=== PATIENT | female | born 1955 | race African-American/Black ===

== ENCOUNTER 2016-08-01 12:23 | Inpatient (IN) | payer OTHER ==
[2016-08-01 15:09] VITALS: BMI 23.5
[2016-08-01] MEDS ORDERED: PNEUMOC 13-VAL CONJ-DIP CRM/PF 0.5 ML DISP.SYRIN IM ONE (15:29)
[2016-08-01] MEDS ORDERED: ALBUTEROL SO4 6.7 GM HFA INHALER IH PRN (15:46)
--- NOTE | 2016-08-01 15:54 | HP ---
[facility] Re[facility] Assess/Revision - Admission History Admitted to Rehab from: [facility] Date of Admission to Rehab: 08/01/16 - Vital signs Vital Signs: Vital Signs Period Temp Pulse Resp BP Sys/Matson Pulse Ox Last 24 Hr 97.9 F-97.9 F 98-98 18-18 155-155/96-96 - Findings Detox History & Physical reviewed: Yes Concur with findings: Yes Comments/Additional Findings: FOR REHAB PROTOCOL
--- NOTE | 2016-08-01 16:17 | HP ---
Psychiatrist Admission - Data Date of interview: 08/01/16 Admission source: [address] [place] [address] Identifying data: This is the second admission to [address] [place] [address] for this 61 years old AA female mother of 34 yo son,resides alone ,supported by [employer]. Medical History: HIV + dx in 1989,AIDS,BA,Hep C. Psychiatric History: patient reports sleeping difficulties Follow up by psychiatrist at [facility] in [facility](not sure the name of the facility) .Current medications :Seroquel 200 mg po hs,but patient reports she needed higher dosage now since she is insomnic and having mood instability.Patient was on Seroquel 200 mg po hs while in detox this week.No history of psychiatric hospitalizations,no suicidal attempts in the past. Physical/Sexual Abuse/Trauma History: denies Vital Signs: Vital Signs - 24 hr 08/01/16 08/01/16 12:45 15:08 Temperature 97.9 F 97.9 F Pulse Rate 98 H 98 H Respiratory 18 18 Rate Blood Pressure 155/96 155/96 Allergies/Adverse Reactions: Allergies Allergy/AdvReac Type Severity Reaction Status Date / Time No Known Drug Allergies Allergy Unknown Verified 07/28/16 16:59 mushroom Allergy Rash Verified 08/01/16 15:30 Date of last physical exam: 07/28/16 Concur with the findings of this exam: Yes - Substance Abuse/Tx History Hx Alcohol Use: Yes (reorts drinking since 10yo,6 packs of beer daily) Hx Substance Use: Yes (cocaine/crack since early ,heavy user for a few years) Substance Use Type: Alcohol, Cocaine Hx Substance Use Treatment: Yes (completed this program in Apr 2016,longest abstinence 7 years) - Admission Criteria Previous failed treatment: Yes Poor recovery environment: Yes Comorbidities: Yes Lacks judgement: Yes Mental Status Exam - Mental Status Exam Alert and Oriented to: Time, Place, Person Cognitive Function: Grossly Intact Patient Appearance: Unkempt Mood: Sad Affect: Labile Patient Behavior: Cooperative Speech Pattern: Clear Voice Loudness: Normal Thought Process: Goal Oriented Thought Disorder: Not Present Hallucinations: Denies Suicidal Ideation: Denies Homicidal Ideation: Denies Insight/Judgement: Fair Sleep: Difficulty falling asleep Appetite: Fair Muscle strength/Tone: Normal Gait/Station: Normal Psychiatric Findings - Problem List ([place] 1, 2,3) (1) Acquired immune deficiency syndrome (AIDS) Current Visit: Yes Status: Chronic (2) Alcohol dependence with uncomplicated withdrawal Current Visit: Yes Status: Chronic (3) Asthma Current Visit: Yes Status: Chronic Qualifiers: Asthma severity: mild intermittent Asthma complication type: uncomplicated Qualified Code(s): J45.20 - Mild intermittent asthma, uncomplicated (4) Cocaine dependence, uncomplicated Current Visit: Yes Status: Chronic (5) HTN (hypertension) Current Visit: Yes Status: Chronic Qualifiers: Hypertension type: essential hypertension Qualified Code(s): I10 - Essential (primary) hypertension (6) Hepatitis C Current Visit: Yes Status: Chronic Qualifiers: Viral hepatitis chronicity: chronic (7) Nicotine dependence Current Visit: Yes Status: Chronic (8) Substance induced mood disorder Current Visit: Yes Status: Chronic - Initial Treatment Plan Initial Treatment Plan: Seroquel 200 mg po hs will be adjusted to 250 mg po hs. Will monitor progress.
[2016-08-01] MEDS ORDERED: QUEtiapine FUMARATE 200 MG TABLET ONE (21:57)
[2016-08-01] MEDS ORDERED: QUEtiapine FUMARATE 50 MG TABLET ONE (21:57)
[2016-08-01] MEDS: QUETIAPINE FUMARATE 200 MG, QUETIAPINE FUMARATE 50 MG PO SCH (21:59)
[2016-08-01] MEDS: ATORVASTATIN CA 20 MG TABLET (FP) PO SCH (21:59)
[2016-08-01] MEDS: NICOTINE 21 MG/24 HOURS TOPICAL PATCH TD SCH (21:59)
[2016-08-01] MEDS ORDERED: QUEtiapine FUMARATE 200 MG TABLET PO SCH (22:00)
[2016-08-01] MEDS ORDERED: ACETAMINOPHEN 325 MG TABLET (FP) PO PRN (23:46)
[2016-08-01] MEDS ORDERED: MAG HYDROX/AL HYDROX/SIMETH 30 ML UNIT-DOSE CUP PO PRN (23:46)
[2016-08-01] MEDS ORDERED: LOPERAMIDE HCL 2 MG CAPSULE PO PRN (23:46)
[2016-08-01] MEDS ORDERED: MAGNESIUM HYDROX 2400MG/30ML ORAL SUSPENSION 30 ML CUP PO PRN (23:46)
[2016-08-01] MEDS ORDERED: MENTHOL/PHENOL 1 EACH UD MM PRN (23:46)
[2016-08-01] MEDS ORDERED: hydrOXYzine PAMOATE 50 MG CAPSULE (FP) PO PRN (23:46)
[2016-08-01] MEDS ORDERED: NICOTINE POLACRILEX 2 MG GUM BUC PRN (23:46)
[2016-08-01] MEDS ORDERED: diphenhydrAMINE HCL 50 MG CAPSULE PO PRN (23:46)
[2016-08-01] MEDS ORDERED: MAGNESIUM CITRATE 300 ML BOTTLE PO PRN (23:46)
[2016-08-01] MEDS ORDERED: guaiFENesin/D-METHORPHAN HB 10 ML UNIT-DOSE CUPS PO PRN (23:46)
[2016-08-01] MEDS ORDERED: P-EPHED 60MG/TRIPROLIDI 2.5MG TABLET PO PRN (23:46)
[2016-08-01] MEDS ORDERED: amLODIPine BESYLATE 10 MG TABLET (FP) PO SCH (23:50)
[2016-08-02] MEDS: MELOXICAM PO SCH (09:17)
[2016-08-02] MEDS: NICOTINE 21 MG/24 HOURS TOPICAL PATCH TD SCH (09:18)
[2016-08-02] MEDS: PRENATAL VITAMINS W/ FOLIC ACID TABLET (FP) PO SCH (09:18)
[2016-08-02] MEDS ORDERED: amLODIPine BESYLATE 10 MG TABLET (FP) PO SCH (10:00)
[2016-08-02] MEDS ORDERED: BENAZEPRIL HCL 20 MG PO SCH (10:00)
[2016-08-02] MEDS: CHOLECALCIFEROL (VITAMIN D3) 1,000 UNIT TABLET (FP) PO SCH (11:00)
[2016-08-02] MEDS ORDERED: PNEUMOCOCCAL 23 VACCINE 0.5 ML VIAL IM ONE (12:00)
[2016-08-02] MEDS ORDERED: BENAZEPRIL PO SCH (19:15)
[2016-08-02] MEDS ORDERED: AMLODIPINE PO SCH (19:15)
[2016-08-02] MEDS ORDERED: ENALAPRIL MALEATE 10 MG TABLET (FP) PO SCH (19:30)
[2016-08-02] MEDS ORDERED: QUEtiapine FUMARATE 50 MG TABLET ONE (20:30)
[2016-08-02] MEDS ORDERED: QUEtiapine FUMARATE 200 MG TABLET ONE (20:30)
[2016-08-02] MEDS: amLODIPine BESYLATE 10 MG TABLET (FP) PO SCH (20:43)
[2016-08-02] MEDS: LISINOPRIL 20 MG TABLET (FP) PO SCH (20:43)
[2016-08-02] MEDS: QUETIAPINE FUMARATE 200 MG, QUETIAPINE FUMARATE 50 MG PO SCH (21:50)
[2016-08-02] MEDS: ATORVASTATIN CA 20 MG TABLET (FP) PO SCH (21:50)
[2016-08-02] MEDS: THIAMINE HCL 100 MG TABLET (FP) PO SCH (21:51)
[2016-08-03] MEDS: LISINOPRIL 20 MG TABLET (FP) PO SCH (09:49)
[2016-08-03] MEDS: amLODIPine BESYLATE 10 MG TABLET (FP) PO SCH (09:49)
[2016-08-03] MEDS: PRENATAL VITAMINS W/ FOLIC ACID TABLET (FP) PO SCH (09:49)
[2016-08-03] MEDS: NICOTINE 21 MG/24 HOURS TOPICAL PATCH TD SCH (09:49)
[2016-08-03] MEDS: MELOXICAM PO SCH (09:50)
[2016-08-03] MEDS: CHOLECALCIFEROL (VITAMIN D3) 1,000 UNIT TABLET (FP) PO SCH (09:51)
[2016-08-03] MEDS ORDERED: PNEUMOC 13-VAL CONJ-DIP CRM/PF 0.5 ML DISP.SYRIN IM ONE (12:01)
[2016-08-03] MEDS ORDERED: QUEtiapine FUMARATE 50 MG TABLET ONE (19:55)
[2016-08-03] MEDS ORDERED: QUEtiapine FUMARATE 200 MG TABLET ONE (19:56)
[2016-08-03] MEDS: THIAMINE HCL 100 MG TABLET (FP) PO SCH (21:28)
[2016-08-03] MEDS: IBUPROFEN 400 MG TABLET (FP) PO PRN (21:29)
[2016-08-03] MEDS: ATORVASTATIN CA 20 MG TABLET (FP) PO SCH (21:29)
[2016-08-03] MEDS: QUETIAPINE FUMARATE 200 MG, QUETIAPINE FUMARATE 50 MG PO SCH (21:29)
[2016-08-04] MEDS: PRENATAL VITAMINS W/ FOLIC ACID TABLET (FP) PO SCH (10:40)
[2016-08-04] MEDS: NICOTINE 21 MG/24 HOURS TOPICAL PATCH TD SCH (10:40)
[2016-08-04] MEDS: amLODIPine BESYLATE 10 MG TABLET (FP) PO SCH (10:40)
[2016-08-04] MEDS: LISINOPRIL 20 MG TABLET (FP) PO SCH (10:41)
[2016-08-04] MEDS: CHOLECALCIFEROL (VITAMIN D3) 1,000 UNIT TABLET (FP) PO SCH (10:41)
[2016-08-04] MEDS: MELOXICAM PO SCH (10:42)
[2016-08-04] MEDS ORDERED: QUEtiapine FUMARATE 200 MG TABLET ONE (19:38)
[2016-08-04] MEDS ORDERED: QUEtiapine FUMARATE 50 MG TABLET ONE (19:38)
[2016-08-04] MEDS: ATORVASTATIN CA 20 MG TABLET (FP) PO SCH (22:02)
[2016-08-04] MEDS: THIAMINE HCL 100 MG TABLET (FP) PO SCH (22:03)
[2016-08-04] MEDS: QUETIAPINE FUMARATE 200 MG, QUETIAPINE FUMARATE 50 MG PO SCH (22:03)
[2016-08-05] MEDS: MELOXICAM PO SCH (10:23)
[2016-08-05] MEDS: NICOTINE 21 MG/24 HOURS TOPICAL PATCH TD SCH (10:23)
[2016-08-05] MEDS: amLODIPine BESYLATE 10 MG TABLET (FP) PO SCH (10:24)
[2016-08-05] MEDS: CHOLECALCIFEROL (VITAMIN D3) 1,000 UNIT TABLET (FP) PO SCH (10:24)
[2016-08-05] MEDS: LISINOPRIL 20 MG TABLET (FP) PO SCH (10:24)
[2016-08-05] MEDS: PRENATAL VITAMINS W/ FOLIC ACID TABLET (FP) PO SCH (10:24)
[2016-08-05] MEDS ORDERED: QUEtiapine FUMARATE 200 MG TABLET ONE (19:59)
[2016-08-05] MEDS ORDERED: QUEtiapine FUMARATE 50 MG TABLET ONE (19:59)
[2016-08-05] MEDS: QUETIAPINE FUMARATE 200 MG, QUETIAPINE FUMARATE 50 MG PO SCH (21:55)
[2016-08-05] MEDS: THIAMINE HCL 100 MG TABLET (FP) PO SCH (21:55)
[2016-08-05] MEDS: ATORVASTATIN CA 20 MG TABLET (FP) PO SCH (21:55)
[2016-08-06] MEDS: CHOLECALCIFEROL (VITAMIN D3) 1,000 UNIT TABLET (FP) PO SCH (10:58)
[2016-08-06] MEDS: MELOXICAM PO SCH (10:58)
[2016-08-06] MEDS: PRENATAL VITAMINS W/ FOLIC ACID TABLET (FP) PO SCH (10:58)
[2016-08-06] MEDS: LISINOPRIL 20 MG TABLET (FP) PO SCH (10:58)
[2016-08-06] MEDS: NICOTINE 21 MG/24 HOURS TOPICAL PATCH TD SCH (10:59)
[2016-08-06] MEDS: amLODIPine BESYLATE 10 MG TABLET (FP) PO SCH (10:59)
[2016-08-06] MEDS ORDERED: QUEtiapine FUMARATE 200 MG TABLET ONE (19:24)
[2016-08-06] MEDS ORDERED: QUEtiapine FUMARATE 50 MG TABLET ONE (19:24)
[2016-08-06] MEDS: THIAMINE HCL 100 MG TABLET (FP) PO SCH (21:47)
[2016-08-06] MEDS: ATORVASTATIN CA 20 MG TABLET (FP) PO SCH (21:48)
[2016-08-06] MEDS: QUETIAPINE FUMARATE 200 MG, QUETIAPINE FUMARATE 50 MG PO SCH (21:48)
[2016-08-07] MEDS: CHOLECALCIFEROL (VITAMIN D3) 1,000 UNIT TABLET (FP) PO SCH (09:03)
[2016-08-07] MEDS: LISINOPRIL 20 MG TABLET (FP) PO SCH (09:03)
[2016-08-07] MEDS: MELOXICAM PO SCH (09:03)
[2016-08-07] MEDS: NICOTINE 21 MG/24 HOURS TOPICAL PATCH TD SCH (09:03)
[2016-08-07] MEDS: PRENATAL VITAMINS W/ FOLIC ACID TABLET (FP) PO SCH (09:03)
[2016-08-07] MEDS: amLODIPine BESYLATE 10 MG TABLET (FP) PO SCH (09:03)
[2016-08-07] MEDS ORDERED: QUEtiapine FUMARATE 200 MG TABLET ONE (19:35)
[2016-08-07] MEDS ORDERED: QUEtiapine FUMARATE 50 MG TABLET ONE (19:35)
[2016-08-07] MEDS: THIAMINE HCL 100 MG TABLET (FP) PO SCH (21:44)
[2016-08-07] MEDS: ATORVASTATIN CA 20 MG TABLET (FP) PO SCH (21:44)
[2016-08-07] MEDS: QUETIAPINE FUMARATE 200 MG, QUETIAPINE FUMARATE 50 MG PO SCH (21:44)
[2016-08-08] MEDS: PRENATAL VITAMINS W/ FOLIC ACID TABLET (FP) PO SCH (10:14)
[2016-08-08] MEDS: MELOXICAM PO SCH (10:14)
[2016-08-08] MEDS: amLODIPine BESYLATE 10 MG TABLET (FP) PO SCH (10:14)
[2016-08-08] MEDS: LISINOPRIL 20 MG TABLET (FP) PO SCH (10:14)
[2016-08-08] MEDS: CHOLECALCIFEROL (VITAMIN D3) 1,000 UNIT TABLET (FP) PO SCH (10:14)
[2016-08-08] MEDS: NICOTINE 21 MG/24 HOURS TOPICAL PATCH TD SCH (10:15)
[2016-08-08] MEDS ORDERED: QUEtiapine FUMARATE 50 MG TABLET ONE (19:54)
[2016-08-08] MEDS ORDERED: QUEtiapine FUMARATE 200 MG TABLET ONE (19:55)
[2016-08-08] MEDS: ATORVASTATIN CA 20 MG TABLET (FP) PO SCH (21:22)
[2016-08-08] MEDS: QUETIAPINE FUMARATE 200 MG, QUETIAPINE FUMARATE 50 MG PO SCH (21:22)
[2016-08-08] MEDS: THIAMINE HCL 100 MG TABLET (FP) PO SCH (21:23)
[2016-08-09] MEDS: PRENATAL VITAMINS W/ FOLIC ACID TABLET (FP) PO SCH (10:08)
[2016-08-09] MEDS: amLODIPine BESYLATE 10 MG TABLET (FP) PO SCH (10:09)
[2016-08-09] MEDS: MELOXICAM PO SCH (10:09)
[2016-08-09] MEDS: CHOLECALCIFEROL (VITAMIN D3) 1,000 UNIT TABLET (FP) PO SCH (10:09)
[2016-08-09] MEDS: LISINOPRIL 20 MG TABLET (FP) PO SCH (10:09)
[2016-08-09] MEDS: NICOTINE 21 MG/24 HOURS TOPICAL PATCH TD SCH (10:10)
[2016-08-09] MEDS ORDERED: QUEtiapine FUMARATE 50 MG TABLET ONE (19:35)
[2016-08-09] MEDS ORDERED: QUEtiapine FUMARATE 200 MG TABLET ONE (19:36)
[2016-08-09] MEDS: QUETIAPINE FUMARATE 200 MG, QUETIAPINE FUMARATE 50 MG PO SCH (21:25)
[2016-08-09] MEDS: THIAMINE HCL 100 MG TABLET (FP) PO SCH (21:25)
[2016-08-09] MEDS: ATORVASTATIN CA 20 MG TABLET (FP) PO SCH (21:25)
[2016-08-10] MEDS: MELOXICAM PO SCH (09:14)
[2016-08-10] MEDS: amLODIPine BESYLATE 10 MG TABLET (FP) PO SCH (09:15)
[2016-08-10] MEDS: PRENATAL VITAMINS W/ FOLIC ACID TABLET (FP) PO SCH (09:15)
[2016-08-10] MEDS: CHOLECALCIFEROL (VITAMIN D3) 1,000 UNIT TABLET (FP) PO SCH (09:15)
[2016-08-10] MEDS: LISINOPRIL 20 MG TABLET (FP) PO SCH (09:15)
[2016-08-10] MEDS: NICOTINE 21 MG/24 HOURS TOPICAL PATCH TD SCH (09:16)
[2016-08-10] MEDS ORDERED: QUEtiapine FUMARATE 200 MG TABLET ONE (19:32)
[2016-08-10] MEDS ORDERED: QUEtiapine FUMARATE 50 MG TABLET ONE (19:32)
[2016-08-10] MEDS: QUETIAPINE FUMARATE 200 MG, QUETIAPINE FUMARATE 50 MG PO SCH (21:25)
[2016-08-10] MEDS: ATORVASTATIN CA 20 MG TABLET (FP) PO SCH (21:26)
[2016-08-10] MEDS: THIAMINE HCL 100 MG TABLET (FP) PO SCH (21:26)
[2016-08-11] MEDS: MELOXICAM PO SCH (10:37)
[2016-08-11] MEDS: NICOTINE 21 MG/24 HOURS TOPICAL PATCH TD SCH (10:37)
[2016-08-11] MEDS: PRENATAL VITAMINS W/ FOLIC ACID TABLET (FP) PO SCH (10:38)
[2016-08-11] MEDS: amLODIPine BESYLATE 10 MG TABLET (FP) PO SCH (10:38)
[2016-08-11] MEDS: CHOLECALCIFEROL (VITAMIN D3) 1,000 UNIT TABLET (FP) PO SCH (10:39)
[2016-08-11] MEDS: LISINOPRIL 20 MG TABLET (FP) PO SCH (10:39)
[2016-08-11] MEDS ORDERED: QUEtiapine FUMARATE 50 MG TABLET ONE (20:04)
[2016-08-11] MEDS ORDERED: QUEtiapine FUMARATE 200 MG TABLET ONE (20:04)
[2016-08-11] MEDS: QUETIAPINE FUMARATE 200 MG, QUETIAPINE FUMARATE 50 MG PO SCH (21:43)
[2016-08-11] MEDS: ATORVASTATIN CA 20 MG TABLET (FP) PO SCH (21:43)
[2016-08-11] MEDS: THIAMINE HCL 100 MG TABLET (FP) PO SCH (21:43)
[2016-08-12] MEDS: PRENATAL VITAMINS W/ FOLIC ACID TABLET (FP) PO SCH (10:47)
[2016-08-12] MEDS: MELOXICAM PO SCH (10:49)
[2016-08-12] MEDS: NICOTINE 21 MG/24 HOURS TOPICAL PATCH TD SCH (10:49)
[2016-08-12] MEDS: amLODIPine BESYLATE 10 MG TABLET (FP) PO SCH (10:50)
[2016-08-12] MEDS: LISINOPRIL 20 MG TABLET (FP) PO SCH (10:50)
[2016-08-12] MEDS: CHOLECALCIFEROL (VITAMIN D3) 1,000 UNIT TABLET (FP) PO SCH (10:50)
[2016-08-12] MEDS ORDERED: QUEtiapine FUMARATE 50 MG TABLET ONE (20:11)
[2016-08-12] MEDS ORDERED: QUEtiapine FUMARATE 200 MG TABLET ONE (20:12)
[2016-08-12] MEDS: QUETIAPINE FUMARATE 200 MG, QUETIAPINE FUMARATE 50 MG PO SCH (21:36)
[2016-08-12] MEDS: ATORVASTATIN CA 20 MG TABLET (FP) PO SCH (21:36)
[2016-08-12] MEDS: THIAMINE HCL 100 MG TABLET (FP) PO SCH (21:36)
[2016-08-13] MEDS: PRENATAL VITAMINS W/ FOLIC ACID TABLET (FP) PO SCH (09:50)
[2016-08-13] MEDS: MELOXICAM PO SCH (09:50)
[2016-08-13] MEDS: LISINOPRIL 20 MG TABLET (FP) PO SCH (09:51)
[2016-08-13] MEDS: amLODIPine BESYLATE 10 MG TABLET (FP) PO SCH (09:52)
[2016-08-13] MEDS: CHOLECALCIFEROL (VITAMIN D3) 1,000 UNIT TABLET (FP) PO SCH (09:52)
[2016-08-13] MEDS: NICOTINE 21 MG/24 HOURS TOPICAL PATCH TD SCH (09:53)
[2016-08-13] MEDS ORDERED: QUEtiapine FUMARATE 200 MG TABLET ONE (19:43)
[2016-08-13] MEDS ORDERED: QUEtiapine FUMARATE 50 MG TABLET ONE (19:43)
[2016-08-13] MEDS: ATORVASTATIN CA 20 MG TABLET (FP) PO SCH (21:20)
[2016-08-13] MEDS: THIAMINE HCL 100 MG TABLET (FP) PO SCH (21:20)
[2016-08-13] MEDS: QUETIAPINE FUMARATE 200 MG, QUETIAPINE FUMARATE 50 MG PO SCH (21:20)
[2016-08-14] MEDS: IBUPROFEN 400 MG TABLET (FP) PO PRN (08:58)
[2016-08-14] MEDS: CHOLECALCIFEROL (VITAMIN D3) 1,000 UNIT TABLET (FP) PO SCH (09:00)
[2016-08-14] MEDS: amLODIPine BESYLATE 10 MG TABLET (FP) PO SCH (09:02)
[2016-08-14] MEDS: MELOXICAM PO SCH (09:03)
[2016-08-14] MEDS: NICOTINE 21 MG/24 HOURS TOPICAL PATCH TD SCH (09:04)
[2016-08-14] MEDS: PRENATAL VITAMINS W/ FOLIC ACID TABLET (FP) PO SCH (09:05)
[2016-08-14] MEDS: LISINOPRIL 20 MG TABLET (FP) PO SCH (09:05)
[2016-08-14] MEDS: CYCLOBENZAPRINE HCL 10 MG TABLET (FP) PO SCH ×2 (13:58→21:25)
[2016-08-14] MEDS ORDERED: QUEtiapine FUMARATE 200 MG TABLET ONE (21:25)
[2016-08-14] MEDS ORDERED: QUEtiapine FUMARATE 50 MG TABLET ONE (21:25)
[2016-08-14] MEDS: QUETIAPINE FUMARATE 200 MG, QUETIAPINE FUMARATE 50 MG PO SCH (21:25)
[2016-08-14] MEDS: ATORVASTATIN CA 20 MG TABLET (FP) PO SCH (21:25)
[2016-08-14] MEDS: THIAMINE HCL 100 MG TABLET (FP) PO SCH (21:26)
[2016-08-15] MEDS: MELOXICAM PO SCH (10:04)
[2016-08-15] MEDS: CYCLOBENZAPRINE HCL 10 MG TABLET (FP) PO SCH ×2 (10:05→21:09)
[2016-08-15] MEDS: PRENATAL VITAMINS W/ FOLIC ACID TABLET (FP) PO SCH (10:05)
[2016-08-15] MEDS: NICOTINE 21 MG/24 HOURS TOPICAL PATCH TD SCH (10:05)
[2016-08-15] MEDS: amLODIPine BESYLATE 10 MG TABLET (FP) PO SCH (10:05)
[2016-08-15] MEDS: CHOLECALCIFEROL (VITAMIN D3) 1,000 UNIT TABLET (FP) PO SCH (10:05)
[2016-08-15] MEDS: LISINOPRIL 20 MG TABLET (FP) PO SCH (10:05)
--- NOTE | 2016-08-15 15:11 | PN ---
[facility] Progress Note Note: C/O redness both eyes with discharge Dx. : conjunctivitis P : Tobrex ophthal ramon & Maxitrol oin't
[2016-08-15] MEDS: TOBRAMYCIN 0.3% OPHTH SOLN 5 ML BOTTLE OU SCH ×2 (17:45→21:11)
[2016-08-15] MEDS ORDERED: QUEtiapine FUMARATE 200 MG TABLET ONE (19:25)
[2016-08-15] MEDS ORDERED: QUEtiapine FUMARATE 50 MG TABLET ONE (19:25)
[2016-08-15] MEDS: QUETIAPINE FUMARATE 200 MG, QUETIAPINE FUMARATE 50 MG PO SCH (21:09)
[2016-08-15] MEDS: ATORVASTATIN CA 20 MG TABLET (FP) PO SCH (21:09)
[2016-08-15] MEDS: THIAMINE HCL 100 MG TABLET (FP) PO SCH (21:09)
[2016-08-15] MEDS: NEO/POLYMYX B SULF/DEXAMETH OPHTHALMIC OINTMENT 3.5 GM OU SCH (21:11)
[2016-08-16] MEDS: LISINOPRIL 20 MG TABLET (FP) PO SCH (09:35)
[2016-08-16] MEDS: CYCLOBENZAPRINE HCL 10 MG TABLET (FP) PO SCH ×2 (09:35→21:01)
[2016-08-16] MEDS: CHOLECALCIFEROL (VITAMIN D3) 1,000 UNIT TABLET (FP) PO SCH (09:35)
[2016-08-16] MEDS: MELOXICAM PO SCH (09:36)
[2016-08-16] MEDS: amLODIPine BESYLATE 10 MG TABLET (FP) PO SCH (09:36)
[2016-08-16] MEDS: NICOTINE 21 MG/24 HOURS TOPICAL PATCH TD SCH (09:36)
[2016-08-16] MEDS: TOBRAMYCIN 0.3% OPHTH SOLN 5 ML BOTTLE OU SCH ×4 (09:37→21:02)
[2016-08-16] MEDS: PRENATAL VITAMINS W/ FOLIC ACID TABLET (FP) PO SCH (09:37)
[2016-08-16] MEDS: diphenhydrAMINE HCL 25 MG CAPSULE (FP) PO PRN (15:32)
[2016-08-16] MEDS ORDERED: QUEtiapine FUMARATE 50 MG TABLET ONE (20:26)
[2016-08-16] MEDS ORDERED: QUEtiapine FUMARATE 200 MG TABLET ONE (20:27)
[2016-08-16] MEDS: ATORVASTATIN CA 20 MG TABLET (FP) PO SCH (21:01)
[2016-08-16] MEDS: THIAMINE HCL 100 MG TABLET (FP) PO SCH (21:01)
[2016-08-16] MEDS: QUETIAPINE FUMARATE 200 MG, QUETIAPINE FUMARATE 50 MG PO SCH (21:01)
[2016-08-16] MEDS: NEO/POLYMYX B SULF/DEXAMETH OPHTHALMIC OINTMENT 3.5 GM OU SCH (21:02)
[2016-08-17] MEDS: PRENATAL VITAMINS W/ FOLIC ACID TABLET (FP) PO SCH (09:50)
[2016-08-17] MEDS: CHOLECALCIFEROL (VITAMIN D3) 1,000 UNIT TABLET (FP) PO SCH (09:50)
[2016-08-17] MEDS: amLODIPine BESYLATE 10 MG TABLET (FP) PO SCH (09:51)
[2016-08-17] MEDS: LISINOPRIL 20 MG TABLET (FP) PO SCH (09:51)
[2016-08-17] MEDS: CYCLOBENZAPRINE HCL 10 MG TABLET (FP) PO SCH ×2 (09:51→21:03)
[2016-08-17] MEDS: MELOXICAM PO SCH (09:51)
[2016-08-17] MEDS: NICOTINE 21 MG/24 HOURS TOPICAL PATCH TD SCH (09:52)
[2016-08-17] MEDS: TOBRAMYCIN 0.3% OPHTH SOLN 5 ML BOTTLE OU SCH ×4 (09:53→21:04)
[2016-08-17] MEDS: diphenhydrAMINE HCL 25 MG CAPSULE (FP) PO PRN (09:54)
[2016-08-17] MEDS ORDERED: QUEtiapine FUMARATE 50 MG TABLET ONE (20:04)
[2016-08-17] MEDS ORDERED: QUEtiapine FUMARATE 200 MG TABLET ONE (20:05)
[2016-08-17] MEDS: QUETIAPINE FUMARATE 200 MG, QUETIAPINE FUMARATE 50 MG PO SCH (21:03)
[2016-08-17] MEDS: ATORVASTATIN CA 20 MG TABLET (FP) PO SCH (21:03)
[2016-08-17] MEDS: THIAMINE HCL 100 MG TABLET (FP) PO SCH (21:03)
[2016-08-17] MEDS: NEO/POLYMYX B SULF/DEXAMETH OPHTHALMIC OINTMENT 3.5 GM OU SCH (21:04)
[2016-08-18] MEDS: PRENATAL VITAMINS W/ FOLIC ACID TABLET (FP) PO SCH (09:55)
[2016-08-18] MEDS: MELOXICAM PO SCH (09:55)
[2016-08-18] MEDS: LISINOPRIL 20 MG TABLET (FP) PO SCH (09:56)
[2016-08-18] MEDS: CYCLOBENZAPRINE HCL 10 MG TABLET (FP) PO SCH ×2 (09:56→21:13)
[2016-08-18] MEDS: amLODIPine BESYLATE 10 MG TABLET (FP) PO SCH (09:56)
[2016-08-18] MEDS: CHOLECALCIFEROL (VITAMIN D3) 1,000 UNIT TABLET (FP) PO SCH (09:56)
[2016-08-18] MEDS: TOBRAMYCIN 0.3% OPHTH SOLN 5 ML BOTTLE OU SCH ×4 (09:57→21:12)
[2016-08-18] MEDS: NICOTINE 21 MG/24 HOURS TOPICAL PATCH TD SCH (09:57)
[2016-08-18] MEDS ORDERED: QUEtiapine FUMARATE 50 MG TABLET ONE ×2 (19:31→21:12)
[2016-08-18] MEDS: QUETIAPINE FUMARATE 200 MG, QUETIAPINE FUMARATE 50 MG PO SCH (21:10)
[2016-08-18] MEDS: THIAMINE HCL 100 MG TABLET (FP) PO SCH (21:10)
[2016-08-18] MEDS: ATORVASTATIN CA 20 MG TABLET (FP) PO SCH (21:10)
[2016-08-18] MEDS ORDERED: QUEtiapine FUMARATE 200 MG TABLET ONE (21:12)
[2016-08-18] MEDS: NEO/POLYMYX B SULF/DEXAMETH OPHTHALMIC OINTMENT 3.5 GM OU SCH (21:13)
[2016-08-19] MEDS: IBUPROFEN 400 MG TABLET (FP) PO PRN (08:38)
[2016-08-19] MEDS: CYCLOBENZAPRINE HCL 10 MG TABLET (FP) PO SCH ×2 (10:16→21:12)
[2016-08-19] MEDS: CHOLECALCIFEROL (VITAMIN D3) 1,000 UNIT TABLET (FP) PO SCH (10:16)
[2016-08-19] MEDS: amLODIPine BESYLATE 10 MG TABLET (FP) PO SCH (10:16)
[2016-08-19] MEDS: LISINOPRIL 20 MG TABLET (FP) PO SCH (10:16)
[2016-08-19] MEDS: MELOXICAM PO SCH (10:18)
[2016-08-19] MEDS: PRENATAL VITAMINS W/ FOLIC ACID TABLET (FP) PO SCH (10:19)
[2016-08-19] MEDS: NICOTINE 21 MG/24 HOURS TOPICAL PATCH TD SCH (10:21)
[2016-08-19] MEDS: TOBRAMYCIN 0.3% OPHTH SOLN 5 ML BOTTLE OU SCH ×4 (10:23→21:13)
[2016-08-19] MEDS ORDERED: QUEtiapine FUMARATE 200 MG TABLET ONE (19:16)
[2016-08-19] MEDS ORDERED: QUEtiapine FUMARATE 50 MG TABLET ONE (19:16)
[2016-08-19] MEDS: THIAMINE HCL 100 MG TABLET (FP) PO SCH (21:11)
[2016-08-19] MEDS: QUETIAPINE FUMARATE 200 MG, QUETIAPINE FUMARATE 50 MG PO SCH (21:12)
[2016-08-19] MEDS: ATORVASTATIN CA 20 MG TABLET (FP) PO SCH (21:12)
[2016-08-19] MEDS: NEO/POLYMYX B SULF/DEXAMETH OPHTHALMIC OINTMENT 3.5 GM OU SCH (21:13)
[2016-08-20 07:43] VITALS: TEMP 97.9
[2016-08-20] MEDS: amLODIPine BESYLATE 10 MG TABLET (FP) PO SCH (09:55)
[2016-08-20] MEDS: CHOLECALCIFEROL (VITAMIN D3) 1,000 UNIT TABLET (FP) PO SCH (09:55)
[2016-08-20] MEDS: LISINOPRIL 20 MG TABLET (FP) PO SCH (09:55)
[2016-08-20] MEDS: CYCLOBENZAPRINE HCL 10 MG TABLET (FP) PO SCH ×2 (09:55→21:04)
[2016-08-20] MEDS: MELOXICAM PO SCH (09:56)
[2016-08-20] MEDS: NICOTINE 21 MG/24 HOURS TOPICAL PATCH TD SCH (09:57)
[2016-08-20] MEDS: TOBRAMYCIN 0.3% OPHTH SOLN 5 ML BOTTLE OU SCH ×2 (09:58→13:36)
[2016-08-20] MEDS: PRENATAL VITAMINS W/ FOLIC ACID TABLET (FP) PO SCH (09:58)
--- NOTE | 2016-08-20 19:13 | PN ---
Psychiatric Progress Note Vital Signs: Vital Signs Period Temp Pulse Resp BP Sys/Matson Pulse Ox Last 24 Hr 97.9 F 98-108 18-18 124-130/80-84 Date of Session: 08/20/16 Chief Complaint:: Disharge visit HPI: Patient addressed Alcohol and Cocaine dependence comorbid with Substance induced mood disorder. ROS: Significant for HIV+,AIDS,BA,HTN,Hep C. Current Medications: Active Medications Generic Name Dose Route Start Last Admin Trade Name Freq PRN Reason Stop Dose Admin Acetaminophen 650 mg 08/01/16 23:46 Tylenol - PO Q4H PRN FEVER OR PAIN Al Hydroxide/Mg Hydroxide 30 ml 08/01/16 23:46 Mylanta Oral Suspension - PO Q6H PRN DYSPEPSIA Albuterol Sulfate 0 puff 08/01/16 15:46 Ventolin Hfa Inhaler - IH Q4H PRN ASTHMA Amlodipine Besylate 10 mg 08/02/16 19:30 08/20/16 09:55 Norvasc - PO 10 mg DAILY MICHAEL Administration Atorvastatin Calcium 20 mg 08/01/16 22:00 08/19/16 21:12 Lipitor - PO 20 mg HS MICHAEL Administration Cholecalciferol 2,000 unit 08/02/16 10:00 08/20/16 09:55 Vitamin D3 - PO 2,000 unit DAILY MICHAEL Administration Cyclobenzaprine HCl 10 mg 08/14/16 13:30 08/20/16 09:55 Flexeril - PO 10 mg BID MICHAEL Administration Diphenhydramine HCl 50 mg 08/01/16 23:46 08/19/16 00:26 Benadryl - PO 50 mg HSMR1 PRN Administration FOR ITCHING Diphenhydramine HCl 25 mg 08/16/16 14:53 08/17/16 09:54 Benadryl - PO 25 mg Q4H PRN Administration FOR ITCHING Eucalyptus/Menthol/Phenol/Sorbitol 1 each 08/01/16 23:46 Cepastat Lozenge - MM Q4H PRN SORE THROAT Guaifenesin 10 ml 08/01/16 23:46 Robitussin Dm - PO Q6H PRN COUGH Hydroxyzine Pamoate 50 mg 08/01/16 23:46 Vistaril - PO Q4H PRN AGITATION Lisinopril 20 mg 08/02/16 19:30 08/20/16 09:55 Prinivil PO 20 mg DAILY MICHAEL Administration Loperamide HCl 4 mg 08/01/16 23:46 Imodium - PO Q6H PRN DIARRHEA Magnesium Hydroxide 30 ml 08/01/16 23:46 Milk Of Magnesia - PO DAILY PRN CONSTIPATION Neomycin/Polymyxin/Dexamethasone 1 applic 08/15/16 22:00 08/19/16 21:13 Maxitrol Eye Ointment - OU 08/20/16 21:59 1 applic HS MICHAEL Administration Nicotine 21 mg 08/01/16 16:00 08/20/16 09:57 Nicoderm Patch - TD 21 mg DAILY MICHAEL Administration Nicotine Polacrilex 2 mg 08/01/16 23:46 Nicorette Gum - BUC Q2H PRN NICOTINE REPLACEMENT RX Non-Formulary Medication 0 each 08/02/16 10:00 08/20/16 09:55 Abacavir/Dolutegravir/Lamivudi [Triumeq Tablet] PO 1 each DAILY MICHAEL Administration Non-Formulary Medication 0 mg 08/02/16 10:00 08/20/16 09:56 Meloxicam [Meloxicam] PO 7.5 mg DAILY MICHAEL Administration Multivit/Folic Acid/Iron 1 tab 08/02/16 10:00 08/20/16 09:58 Vitamins (Sjr) - PO 1 tab DAILY MICHAEL Administration Pseudoephedrine/Triprolidine 1 combo 08/01/16 23:46 Actifed - PO TID PRN NASAL CONGESTION Quetiapine Fumarate 200 mg/ 250 mg 08/01/16 22:00 08/19/16 21:12 Quetiapine Fumarate 50 mg PO 250 mg HS MICHAEL Administration Thiamine HCl 100 mg 08/02/16 22:00 08/19/16 21:11 Vitamin B1 - PO 100 mg HS MICHAEL Administration Current Side Effect: No Lab tests ordered: No Lab tests reviewed: Yes Provider note:: The patient will complete this program tomorrow 08/21/16.She has met her treatment goals and will continue to address her issues on outpatient basis.Patient continues to find that Seroquel 250 mg po hs helps to reduce her mood instability,insomnia.Script for 30 days supply provided. Therapy provided focusing on relapse prevention issues including coping skills, support system utilization to maintain recovery. Patient is stable for discharge tomorrow 08/21/16. Total face to face time:: 30 Mental Status Exam - Mental Status Exam Alert and Oriented to: Time, Place, Person Cognitive Function: Grossly Intact Patient Appearance: Well Groomed Mood: Euthymic Affect: Mood Congruent Patient Behavior: Cooperative Speech Pattern: Clear Voice Loudness: Normal Thought Process: Goal Oriented Thought Disorder: Not Present Hallucinations: Denies Suicidal Ideation: Denies Homicidal Ideation: Denies Insight/Judgement: Fair Sleep: Fair Appetite: Good Muscle strength/Tone: Normal Gait/Station: Normal Psychiatric Treatment Plan - Problem List (1) Acquired immune deficiency syndrome (AIDS) Current Visit: Yes (2) Alcohol dependence with uncomplicated withdrawal Current Visit: Yes (3) Asthma Current Visit: Yes Qualifiers: Asthma severity: mild intermittent Asthma complication type: uncomplicated Qualified Code(s): J45.20 - Mild intermittent asthma, uncomplicated (4) Cocaine dependence, uncomplicated Current Visit: Yes (5) HTN (hypertension) Current Visit: Yes Qualifiers: Hypertension type: essential hypertension Qualified Code(s): I10 - Essential (primary) hypertension (6) Hepatitis C Current Visit: Yes Qualifiers: Viral hepatitis chronicity: chronic (7) Nicotine dependence Current Visit: Yes (8) Substance induced mood disorder Current Visit: Yes
[2016-08-20] MEDS ORDERED: QUEtiapine FUMARATE 50 MG TABLET ONE (20:06)
[2016-08-20] MEDS ORDERED: QUEtiapine FUMARATE 200 MG TABLET ONE (20:07)
[2016-08-20] MEDS: ATORVASTATIN CA 20 MG TABLET (FP) PO SCH (21:04)
[2016-08-20] MEDS: QUETIAPINE FUMARATE 200 MG, QUETIAPINE FUMARATE 50 MG PO SCH (21:04)
[2016-08-20] MEDS: THIAMINE HCL 100 MG TABLET (FP) PO SCH (21:04)
[2016-08-21] MEDS: PRENATAL VITAMINS W/ FOLIC ACID TABLET (FP) PO SCH (09:50)
[2016-08-21] MEDS: CYCLOBENZAPRINE HCL 10 MG TABLET (FP) PO SCH (09:51)
[2016-08-21] MEDS: CHOLECALCIFEROL (VITAMIN D3) 1,000 UNIT TABLET (FP) PO SCH (09:51)
[2016-08-21] MEDS: amLODIPine BESYLATE 10 MG TABLET (FP) PO SCH (09:52)
[2016-08-21] MEDS: LISINOPRIL 20 MG TABLET (FP) PO SCH (09:52)
[2016-08-21] MEDS: MELOXICAM PO SCH (09:52)
[2016-08-21] MEDS: NICOTINE 21 MG/24 HOURS TOPICAL PATCH TD SCH (09:53)
[2016-08-21 09:58] VITALS: BP 142/90; PULSE 115
== END 2016-08-21 10:20 | disposition home or self-care (01) | DRG 772 ==
LOC: YASAS 12:23 → Y3E 12:24
PROVIDERS: ADMIT Psychiatry & Neurology Psychiatry; ATTEND Psychiatry & Neurology Psychiatry
PROC: HZ42ZZZ Group Counseling for Substance Abuse Treatment, Cognitive-Behavioral (ICD-10-PCS; principal; 2016-08-01)
DX: F10.20 Alcohol dependence, uncomplicated (principal); F14.20 Cocaine dependence, uncomplicated; F17.210 Nicotine dependence, cigarettes, uncomplicated; F19.24 Other psychoactive substance dependence with psychoactive substance-induced mood disorder; B20 Human immunodeficiency virus [HIV] disease; J45.909 Unspecified asthma, uncomplicated; I10 Essential (primary) hypertension; B18.2 Chronic viral hepatitis C; H10.9 Unspecified conjunctivitis
CPT/HCPCS: 90670

== ENCOUNTER 2016-11-20 12:08 | Inpatient (IN) | payer OTHER ==
[2016-11-20 13:32] VITALS: BMI 22.8
[2016-11-20] MEDS ORDERED: MAGNESIUM HYDROX 2400MG/30ML ORAL SUSPENSION 30 ML CUP PO PRN (17:05)
[2016-11-20] MEDS ORDERED: guaiFENesin/D-METHORPHAN HB 10 ML UNIT-DOSE CUPS PO PRN (17:05)
[2016-11-20] MEDS ORDERED: MAGNESIUM CITRATE 300 ML BOTTLE PO PRN (17:05)
[2016-11-20] MEDS ORDERED: MENTHOL/PHENOL 1 EACH UD MM PRN (17:05)
[2016-11-20] MEDS ORDERED: NICOTINE POLACRILEX 2 MG GUM BC PRN (17:05)
[2016-11-20] MEDS ORDERED: diphenhydrAMINE HCL 50 MG CAPSULE PO PRN (17:05)
[2016-11-20] MEDS ORDERED: P-EPHED 60MG/TRIPROLIDI 2.5MG TABLET PO PRN (17:05)
[2016-11-20] MEDS ORDERED: chlordiazePOXIDE HCL 25 MG CAPSULE PO PRN (17:05)
[2016-11-20] MEDS ORDERED: LOPERAMIDE HCL 2 MG CAPSULE PO PRN (17:05)
[2016-11-20] MEDS ORDERED: IBUPROFEN 400 MG TABLET (FP) PO PRN (17:05)
[2016-11-20] MEDS ORDERED: ACETAMINOPHEN 325 MG TABLET (FP) PO PRN (17:05)
[2016-11-20] MEDS ORDERED: hydrOXYzine PAMOATE 50 MG CAPSULE (FP) PO PRN (17:05)
[2016-11-20] MEDS ORDERED: MAG HYDROX/AL HYDROX/SIMETH 30 ML UNIT-DOSE CUP PO PRN (17:05)
--- NOTE | 2016-11-20 17:11 | HP ---
CIWA Score - CIWA Score Nausea/Vomitin-Mild Nausea/No Vomiting Muscle Tremors: 4-Moderate,w/Arms Extend Anxiety: 4-Mod. Anxious/Guarded Agitation: 4-Moderately Restless Paroxysmal Sweats: 1-Minimal Palms Moist Orientation: 1-Uncertain about Date Tacttile Disturbances: 0-None Auditory Disturbances: 0-None Visual Disturbances: 0-None Headache: 0-None Present CIWA-Ar Total Score: 15 Admission ROS S - HPI Chief Complaint: WITHDRAWAL SX Allergies/Adverse Reactions: Allergies Allergy/AdvReac Type Severity Reaction Status Date / Time No Known Drug Allergies Allergy Unknown Verified 11/20/16 17:03 mushroom Allergy Rash Verified 11/20/16 17:03 History of Present Illness: 61 YEARS OLD FEMALE WITH LONG HISTORY OF ALCOHOL COCAINE NICOTINE DEPENDENCE, HAS HYPERTENSION ASTHMA, HIV HEPATITIS C POSITIVE PPD, ARTHRITIS OF RIGHT LEG AMBULATE WITH CANE AND DEPRESSION IS ADMITTED TO DETOX Exam Limitations: No Limitations - Ebola screening Have you traveled outside of the country in the last 21 days: No Have you had contact with anyone from an Ebola affected area: No Have you been sick,other than usual withdrawal symptoms: No Do you have a fever: No - Review of Systems Constitutional: Weight Stable EENT: reports: Dental Problems (MULTIPLE TEETH MISSING) Respiratory: reports: No Symptoms reported Cardiac: reports: No Symptoms Reported GI: reports: Nausea, Poor Fluid Intake, Abdominal cramping : reports: No Symptoms Reported Musculoskeletal: reports: Muscle Pain (RIGHT LEG) Integumentary: reports: Dryness Neuro: reports: Tremors Endocrine: reports: No Symptoms Reported Hematology: reports: No Symptoms Reported Psychiatric: reports: Judgement Intact, Orientated x3, Depressed Other Systems: Reviewed and Negative Patient History - Patient Medical History Hx Anemia: No Hx Asthma: Yes Hx Chronic Obstructive Pulmonary Disease (COPD): No Hx Cancer: No Hx Cardiac Disorders: No Hx Congestive Heart Failure: No Hx Hypertension: Yes Hx Hypercholesterolemia: No Hx Pacemaker: No HX Cerebrovascular Accident: No Hx Seizures: No Hx Dementia: No Hx Diabetes: No Hx Gastrointestinal Disorders: No Hx Liver Disease: No Hx Genitourinary Disorders: No Hx Sexually Transmitted Disorders: Yes (Syphillis Tx with 3 Im injections) Hx Renal Disease (ESRD): No Hx Thyroid Disease: No Hx Human Immunodeficiency Virus (HIV): Yes (SINCE 1989;ON MEDS;HX OIs/AIDS.) Hx Hepatitis C: Yes Hx Depression: Yes Hx Suicide Attempt: No Hx Bipolar Disorder: No Hx Schizophrenia: No - Patient Surgical History Past Surgical History: Yes Hx Neurologic Surgery: No Hx Cataract Extraction: No Hx Cardiac Surgery: No Hx Lung Surgery: No Hx Breast Surgery: No Hx Breast Biopsy: No Hx Abdominal Surgery: Yes (2001-umbillical hernia) Hx Appendectomy: No Hx Cholecystectomy: No Hx Genitourinary Surgery: No Hx Section: Yes (1981) Hx Orthopedic Surgery: No Hx Hysterectomy: Yes (1999) Anesthesia Reaction: No - PPD History Previous Implant?: Yes Documented Results: Positive w/proof Implanted On Prior R Admission?: No Results: NEGATIVE CHEST PPD to be Administered?: No - Reproductive History Patient is a Female of Child Bearing Age (11 -55 yrs old): No Last Menstrual Period: 08/17/99 Patient : No - Smoking Cessation Smoking history: Current every day smoker Have you smoked in the past 12 months: Yes Aproximately how many cigarettes per day: 4 Cigars Per Day: 0 Hx Chewing Tobacco Use: No Initiated information on smoking cessation: Yes 'Breaking Loose' booklet given: 11/20/16 - Substance & Tx. History Hx Alcohol Use: Yes Hx Substance Use: Yes Substance Use Type: Alcohol, Cocaine Hx Substance Use Treatment: Yes - Substances Abused Alcohol Route: Oral Frequency: Daily Amount used: [id number] Age of first use: 10 Date of Last Use: 11/20/16 Crack Route: Smoking Frequency: 3-6 times per week Amount used: $50 Age of first use: 25 Date of Last Use: 11/18/16 Alcohol-beer Route: Oral Frequency: Daily Amount used: 2-6 pks. Age of first use: 10 Date of Last Use: 11/20/16 Family Disease History - Family Disease History Family Disease History: Heart Disease: Mother (HEART ATTACK ), Other: Father ( CIRRHOSIS LIVER) Admission Physical Exam S - Vital Signs Vital Signs: Vital Signs - 24 hr 11/20/16 13:29 Temperature 97.3 F L Pulse Rate 111 H Respiratory 18 Rate Blood Pressure 165/98 - Physical General Appearance: Yes: Nourished, Appropriately Dressed, Mild Distress, Alcohol on Breath, Tremorous, Irritable, Sweating, Anxious HEENTM: Yes: Hearing grossly Normal, Normal ENT Inspection, Normocephalic, Normal Voice Respiratory: Yes: Chest Non-Tender, Lungs Clear, Normal Breath Sounds, No Respiratory Distress, No Accessory Muscle Use Neck: Yes: Supple, Trachea in good position Breast: Yes: Breasts Symetrical Cardiology: Yes: Regular Rhythm, S1, S2, Tachycardia Abdominal: Yes: Non Tender, Soft Genitourinary: Yes: Within Normal Limits Back: Yes: Normal Inspection Musculoskeletal: Yes: Gait Steady (CANE), Muscle Pain (RIGHT LEG) Extremities: Yes: Normal Inspection, Non-Tender, Tremors Neurological: Yes: Fully Oriented, Alert, Normal Response, Depressed Affect Integumentary: Yes: Dry, Warm Lymphatic: Yes: Within Normal Limits - Diagnostic (1) Acquired immune deficiency syndrome (AIDS) Current Visit: Yes Status: Acute (2) Alcohol dependence with uncomplicated withdrawal Current Visit: Yes Status: Acute (3) Asthma Current Visit: Yes Status: Acute Qualifiers: Asthma severity: mild intermittent Asthma complication type: uncomplicated Qualified Code(s): J45.20 - Mild intermittent asthma, uncomplicated (4) Cocaine dependence, uncomplicated Current Visit: Yes Status: Chronic (5) HTN (hypertension) Current Visit: Yes Status: Acute Qualifiers: Hypertension type: essential hypertension Qualified Code(s): I10 - Essential (primary) hypertension (6) Hepatitis C Current Visit: Yes Status: Resolved Qualifiers: Viral hepatitis chronicity: chronic Hepatic coma status: without hepatic coma Qualified Code(s): B18.2 - Chronic viral hepatitis C (7) Nicotine dependence Current Visit: Yes Status: Acute (8) Use of cane as ambulatory aid Current Visit: Yes Status: Chronic Comment: ARTHRITIS OF THE RIGHT LEG (9) Hyperlipidemia Current Visit: Yes Status: Acute Qualifiers: Hyperlipidemia type: pure hypercholesterolemia Qualified Code(s): E78.00 - Pure hypercholesterolemia, unspecified; E78.0 - Pure hypercholesterolemia (10) Positive PPD, treated Current Visit: Yes Status: Resolved (11) Dry skin Current Visit: Yes Status: Acute (12) Depression (emotion) Current Visit: Yes Status: Suspected Qualifiers: Depression Type: dysthymia Qualified Code(s): F34.1 - Dysthymic disorder Cleared for Admission S - Detox or Rehab [facility] Level of Care: Medically Managed Detox Regimen/Protocol: Librium [facility] Breath Alcohol Content Breath Alcohol Content: 0.035 Urine Pregancy Test - Result Urine Test Results: Negative- NO Line Present Urine Drug Screen - Control Is Test Valid: Yes - Results Drug Screen Negative: No Urine Drug Screen Results: VINCENT-Cocaine
[2016-11-20] MEDS ORDERED: ALBUTEROL SO4 6.7 GM HFA INHALER IH PRN (17:34)
[2016-11-20] MEDS ORDERED: COLLOIDAL OATMEAL 1 BAR EACH TP PRN (17:41)
[2016-11-20] MEDS: amLODIPine BESYLATE 10 MG TABLET (FP) PO SCH (18:54)
[2016-11-20] MEDS: ENALAPRIL MALEATE 10 MG TABLET (FP) PO SCH (18:54)
[2016-11-20] MEDS: MINERAL OIL/PETROLAT/WATER TOPICAL CREAM 454 GM JAR TP SCH (22:19)
[2016-11-20] MEDS: ATORVASTATIN CA 20 MG TABLET (FP) PO SCH (22:19)
[2016-11-20] MEDS: chlordiazePOXIDE HCL 25 MG CAPSULE PO SCH (22:19)
[2016-11-20] MEDS: THIAMINE HCL 100 MG TABLET (FP) PO SCH (22:19)
[2016-11-20 22:24] LABS: URINE APPEARANCE CLEAR; URINE BILIRUBIN NEGATIVE (NEGATIVE); URINE COLOR RED; URINE GLUCOSE (UA) NEGATIVE (NEGATIVE); URINE KETONE NEGATIVE (NEGATIVE); URINE NITRITE NEGATIVE (NEGATIVE); URINE PROTEIN NEGATIVE (NEGATIVE); URINE UROBILINOGEN NEGATIVE E.U./dl (0.2-1.0)
[2016-11-20 22:41] LABS: URINE BLOOD 1+ (NEGATIVE); URINE LEUK ESTERASE 3+ (NEGATIVE)
[2016-11-20 23:00] LABS: URINE BACTERIA RARE /hpf (NONE SEEN); URINE MUCUS RARE; URINE RBC 10 /hpf (0-3); URINE WBC 11 /hpf (3-5); YEAST RARE
[2016-11-21] MEDS: chlordiazePOXIDE HCL 25 MG CAPSULE PO SCH ×4 (06:12→22:24)
[2016-11-21 09:56] LABS: MCH 34.1 pg (25.7-33.7); MCHC 33.7 g/dl (32.0-36.0); MEAN CELL VOLUME 101.3 fl (80-96); PLATELET COUNT 227 K/MM3 (134-434); RDW 13.5 % (11.6-15.6); WHITE BLOOD COUNT 6.1 K/mm3 (4.0-10.0)
[2016-11-21 10:20] LABS: ALBUMIN 3.2 g/dl (3.4-5.0); ANION GAP 13 (8-16); CO2 22 mmol/L (21-32); GLUCOSE,RANDOM 83 mg/dL (74-106); SGOT/AST 108 U/L (15-37); SGPT/ALT 80 U/L (12-78)
[2016-11-21] MEDS: CHOLECALCIFEROL (VITAMIN D3) 1,000 UNIT TABLET (FP) PO SCH (10:20)
[2016-11-21] MEDS: ENALAPRIL MALEATE 10 MG TABLET (FP) PO SCH (10:20)
--- NOTE | 2016-11-21 10:20 | PN ---
S CIWA - CIWA Score Nausea/Vomitin Muscle Tremors: 3 Anxiety: 3 Agitation: 3 Paroxysmal Sweats: 1-Minimal Palms Moist Orientation: 0-Oriented Tacttile Disturbances: 1-Very Mild Itch/Numbness Auditory Disturbances: 1-Very Mild Visual Disturbances: 1-Very Mild Sensitivity Headache: 2-Mild CIWA-Ar Total Score: 18 [facility] Progress Note (SOAP) Subjective: ALERT,IRRITABLE,ANXIOUS,INTERRUPTED SLEEP,TREMOR Objective: 11/21/16 10:20 Vital Signs Temperature 97.5 F L 11/21/16 09:41 Pulse Rate 97 H 11/21/16 09:41 Respiratory Rate 16 11/21/16 09:41 Blood Pressure 119/72 11/21/16 09:41 O2 Sat by Pulse Oximetry (%) 11/21/16 10:20 EKG NSR 100/MIN NO CHEST PAIN,NO SOB,NO DIZZINESS Laboratory Last Values WBC 6.1 K/mm3 (4.0-10.0) D 11/21/16 06:00 RBC 4.64 M/mm3 (3.60-5.2) 11/21/16 06:00 Hgb 15.8 GM/dL (10.7-15.3) H D 11/21/16 06:00 Hct 47.0 % (32.4-45.2) H 11/21/16 06:00 MCV 101.3 fl (80-96) H 11/21/16 06:00 MCHC 33.7 g/dl (32.0-36.0) 11/21/16 06:00 RDW 13.5 % (11.6-15.6) 11/21/16 06:00 Plt Count 227 K/MM3 (134-434) 11/21/16 06:00 MPV 8.0 fl (7.5-11.1) 11/21/16 06:00 Urine Color Red 11/20/16 22:04 Urine Appearance Clear 11/20/16 22:04 Urine pH 5.0 (5.0-8.0) 11/20/16 22:04 Ur Specific [place] 1.006 (1.001-1.035) 11/20/16 22:04 Urine Protein Negative (NEGATIVE) 11/20/16 22:04 Urine Glucose (UA) Negative (NEGATIVE) 11/20/16 22:04 Urine Ketones Negative (NEGATIVE) 11/20/16 22:04 Urine Blood 1+ (NEGATIVE) H 11/20/16 22:04 Urine Nitrite Negative (NEGATIVE) 11/20/16 22:04 Urine Bilirubin Negative (NEGATIVE) 11/20/16 22:04 Urine Urobilinogen Negative E.U./dl (0.2-1.0) 11/20/16 22:04 Ur Leukocyte Esterase 3+ (NEGATIVE) H D 11/20/16 22:04 Urine RBC 10 /hpf (0-3) 11/20/16 22:04 Urine WBC 11 /hpf (3-5) 11/20/16 22:04 Ur Epithelial Cells Few /hpf (FEW) 11/20/16 22:04 Urine Bacteria Rare /hpf (NONE SEEN) 11/20/16 22:04 Urine Mucus Rare 11/20/16 22:04 Urine Yeast Rare 11/20/16 22:04 LABS PENDING Assessment: 11/21/16 10:22 WITHDRAWAL SYMPTOM Plan: CONTINUE DETOX
[2016-11-21] MEDS: PRENATAL VITAMINS W/ FOLIC ACID TABLET (FP) PO SCH (10:21)
[2016-11-21] MEDS: amLODIPine BESYLATE 10 MG TABLET (FP) PO SCH (10:22)
[2016-11-21] MEDS: NICOTINE 14 MG/24 HOURS TOPICAL PATCH TD SCH (10:24)
[2016-11-21 10:32] LABS: ALK PHOS 136 U/L (45-117); BILIRUBIN,TOTAL 0.4 mg/dL (0.2-1.0); CALCIUM 9.7 mg/dL (8.5-10.1); CREATININE 0.8 mg/dL (0.55-1.02); TOT PROT 9.6 g/dl (6.4-8.2)
--- NOTE | 2016-11-21 17:59 | CONSULT ---
[facility] Psychiatric Consult - Data Date of interview: 11/21/16 Admission source: [facility] Identifying data: Another admission to [facility] for this 61 y/o AA female seeking detox treatment on for alcohol and cocaine dependence.Patient is single,a mother of one,domiciled,unemployed and supported by [employer]. Substance Abuse History: - Smoking Cessation. Smoking history: Current every day smoker. Have you smoked in the past 12 months: Yes. Aproximately how many cigarettes per day: 4. Cigars Per Day: 0. Hx Chewing Tobacco Use: No. Initiated information on smoking cessation: Yes. 'Breaking Loose' booklet given : 11/20/16. - Substance & Tx. History. Hx Alcohol Use: Yes. Hx Substance Use : Yes. Substance Use Type: Alcohol, Cocaine. Hx Substance Use Treatment: Yes. - Substances Abused. Alcohol. Route: Oral. Frequency: Daily. Amount used: [id number]. Age of first use: 10. Date of Last Use: 11/20/16. Crack. Route: Smoking. Frequency: 3-6 times per week. Amount used: $50. Age of first use: 25. Date of Last Use: 11/18/16. Alcohol-beer. Route: Oral. Frequency: Daily. Amount used: 2-6 pks. Age of first use: 10. Date of Last Use: 11/20/16. Confirmed by patient. Medical History: Bronchial asthma,hepatitis C,hypertension,past treatment for syphilis,umbilical hernia,HIV infection since 1989 (off ART medications since 1999),arthritis of right leg (ambulates with a cane) and a history of hysterectomy in 1999. Psychiatric History: No history of psychiatric hospitalizations.Diagnosed with MDD.Prescribed seroquel 300 mg/hs.Ms Barr sees a psychiatrist at the [facility] in the [place].Last took seroquel a week ago (ran out of supply).Patient denies history of suicide attempts. Physical/Sexual Abuse/Trauma History: Patient denies. Mental Status Exam - Mental Status Exam Alert and Oriented to: Time, Place, Person Cognitive Function: Good Patient Appearance: Well Groomed Mood: Hopeful, Euthymic Affect: Appropriate, Normal Range Patient Behavior: Fatigued, Appropriate, Cooperative Speech Pattern: Clear, Appropriate Voice Loudness: Normal Thought Process: Goal Oriented Thought Disorder: Not Present Hallucinations: Denies Suicidal Ideation: Denies Homicidal Ideation: Denies Insight/Judgement: Fair Sleep: Poorly, Difficulty falling asleep Appetite: Good Gait/Station: Other (walks with a cane.) Psychiatric Findings - Problem List ([place] 1, 2,3) (1) Alcohol dependence with uncomplicated withdrawal Current Visit: Yes Status: Acute (2) Cocaine dependence, uncomplicated Current Visit: Yes Status: Acute (3) Nicotine dependence Current Visit: Yes Status: Acute (4) Substance induced mood disorder Current Visit: Yes Status: Chronic (5) Hyperlipidemia Current Visit: Yes Status: Chronic Qualifiers: Hyperlipidemia type: pure hypercholesterolemia Qualified Code(s): E78.00 - Pure hypercholesterolemia, unspecified; E78.0 - Pure hypercholesterolemia (6) Use of cane as ambulatory aid Current Visit: Yes Status: Chronic Comment: ARTHRITIS OF THE RIGHT LEG (7) Hepatitis C Current Visit: Yes Status: Resolved Qualifiers: Viral hepatitis chronicity: chronic Hepatic coma status: without hepatic coma Qualified Code(s): B18.2 - Chronic viral hepatitis C (8) Positive PPD, treated Current Visit: Yes Status: Resolved (9) Acquired immune deficiency syndrome (AIDS) Current Visit: Yes Status: Chronic (10) Asthma Current Visit: Yes Status: Chronic Qualifiers: Asthma severity: mild intermittent Asthma complication type: uncomplicated Qualified Code(s): J45.20 - Mild intermittent asthma, uncomplicated (11) HTN (hypertension) Current Visit: Yes Status: Chronic Qualifiers: Hypertension type: essential hypertension Qualified Code(s): I10 - Essential (primary) hypertension (12) Insomnia Current Visit: Yes Status: Acute - Initial Treatment Plan Initial Treatment Plan: Psychoeducation.Detoxification.Seroquel 50 mg po hs ( intentionally reduced until verification of pharmacy claims).Side effects/ benefits explained to patient.Made aware of risk of oversedation/falls.Patient denies past history of adverse events on seroquel.She agrees with this careplan.Call made to [facility] @ [phone] : unable to contact personnel (full mailbox).Observation.Will follow.
[2016-11-21] MEDS: QUEtiapine FUMARATE 50 MG TABLET PO SCH (22:23)
[2016-11-21] MEDS: ATORVASTATIN CA 20 MG TABLET (FP) PO SCH (22:23)
[2016-11-21] MEDS: MINERAL OIL/PETROLAT/WATER TOPICAL CREAM 454 GM JAR TP SCH (22:25)
[2016-11-21] MEDS: THIAMINE HCL 100 MG TABLET (FP) PO SCH (22:26)
[2016-11-22] MEDS: chlordiazePOXIDE HCL 25 MG CAPSULE PO SCH ×3 (05:52→18:07)
[2016-11-22 10:10] LABS: URINE APPEARANCE CLEAR; URINE BILIRUBIN NEGATIVE (NEGATIVE); URINE BLOOD NEGATIVE (NEGATIVE); URINE COLOR STRAW; URINE GLUCOSE (UA) NEGATIVE (NEGATIVE); URINE KETONE NEGATIVE (NEGATIVE); URINE NITRITE NEGATIVE (NEGATIVE); URINE PROTEIN NEGATIVE (NEGATIVE); URINE UROBILINOGEN NEGATIVE E.U./dl (0.2-1.0)
[2016-11-22 10:18] LABS: URINE LEUK ESTERASE 2+ (NEGATIVE)
[2016-11-22 10:19] LABS: URINE BACTERIA RARE /hpf (NONE SEEN); URINE RBC 1 /hpf (0-3); URINE WBC 4 /hpf (3-5)
[2016-11-22] MEDS: PRENATAL VITAMINS W/ FOLIC ACID TABLET (FP) PO SCH (10:41)
[2016-11-22] MEDS: amLODIPine BESYLATE 10 MG TABLET (FP) PO SCH (10:42)
[2016-11-22] MEDS: CHOLECALCIFEROL (VITAMIN D3) 1,000 UNIT TABLET (FP) PO SCH (10:42)
[2016-11-22] MEDS: ENALAPRIL MALEATE 10 MG TABLET (FP) PO SCH (10:42)
[2016-11-22] MEDS: NICOTINE 14 MG/24 HOURS TOPICAL PATCH TD SCH (10:43)
--- NOTE | 2016-11-22 14:29 | PN ---
S CIWA - CIWA Score Nausea/Vomitin Muscle Tremors: 4-Moderate,w/Arms Extend Anxiety: 3 Agitation: 2 Paroxysmal Sweats: 3 Orientation: 0-Oriented Tacttile Disturbances: 3-Moderate Itch/Numb/Burn Auditory Disturbances: 0-None Visual Disturbances: 0-None Headache: 3-Moderate CIWA-Ar Total Score: 20 BHS Progress Note (SOAP) Subjective: Tremors, interrupted sleep, Sweating, Stomach cramping, Body aches, H/A. Objective: PT. A & O X 3. 11/22/16 14:27 Vital Signs Temperature 97.0 F L 11/22/16 14:12 Pulse Rate 94 H 11/22/16 14:12 Respiratory Rate 16 11/22/16 14:12 Blood Pressure 141/70 11/22/16 14:12 O2 Sat by Pulse Oximetry (%) Laboratory Last Values WBC 6.1 K/mm3 (4.0-10.0) D 11/21/16 06:00 RBC 4.64 M/mm3 (3.60-5.2) 11/21/16 06:00 Hgb 15.8 GM/dL (10.7-15.3) H D 11/21/16 06:00 Hct 47.0 % (32.4-45.2) H 11/21/16 06:00 MCV 101.3 fl (80-96) H 11/21/16 06:00 MCHC 33.7 g/dl (32.0-36.0) 11/21/16 06:00 RDW 13.5 % (11.6-15.6) 11/21/16 06:00 Plt Count 227 K/MM3 (134-434) 11/21/16 06:00 MPV 8.0 fl (7.5-11.1) 11/21/16 06:00 Sodium 138 mmol/L (136-145) 11/21/16 06:00 Potassium 3.7 mmol/L (3.5-5.1) 11/21/16 06:00 Chloride 103 mmol/L (98-107) 11/21/16 06:00 Carbon Dioxide 22 mmol/L (21-32) 11/21/16 06:00 Anion Gap 13 (8-16) 11/21/16 06:00 BUN 9 mg/dL (7-18) 11/21/16 06:00 Creatinine 0.8 mg/dL (0.55-1.02) 11/21/16 06:00 Creat Clearance w eGFR > 60 (>60) 11/21/16 06:00 Random Glucose 83 mg/dL (74-106) 11/21/16 06:00 Calcium 9.7 mg/dL (8.5-10.1) 11/21/16 06:00 Total Bilirubin 0.4 mg/dL (0.2-1.0) 11/21/16 06:00 AST 108 U/L (15-37) H D 11/21/16 06:00 ALT 80 U/L (12-78) H D 11/21/16 06:00 Alkaline Phosphatase 136 U/L (45-117) H D 11/21/16 06:00 Total Protein 9.6 g/dl (6.4-8.2) H 11/21/16 06:00 Albumin 3.2 g/dl (3.4-5.0) L 11/21/16 06:00 Urine Color Straw 11/22/16 08:00 Urine Appearance Clear 11/22/16 08:00 Urine pH 7.0 (5.0-8.0) D 11/22/16 08:00 Ur Specific [place] 1.010 (1.001-1.035) 11/22/16 08:00 Urine Protein Negative (NEGATIVE) 11/22/16 08:00 Urine Glucose (UA) Negative (NEGATIVE) 11/22/16 08:00 Urine Ketones Negative (NEGATIVE) 11/22/16 08:00 Urine Blood Negative (NEGATIVE) 11/22/16 08:00 Urine Nitrite Negative (NEGATIVE) 11/22/16 08:00 Urine Bilirubin Negative (NEGATIVE) 11/22/16 08:00 Urine Urobilinogen Negative E.U./dl (0.2-1.0) 11/22/16 08:00 Ur Leukocyte Esterase 2+ (NEGATIVE) H 11/22/16 08:00 Urine RBC 1 /hpf (0-3) 11/22/16 08:00 Urine WBC 4 /hpf (3-5) 11/22/16 08:00 Ur Epithelial Cells Rare /hpf (FEW) 11/22/16 08:00 Urine Bacteria Rare /hpf (NONE SEEN) 11/22/16 08:00 Urine Mucus Rare 11/20/16 22:04 Urine Yeast Rare 11/20/16 22:04 RPR Titer Nonreactive (NONREACTIVE) 11/21/16 06:00 LABS NOTED. Assessment: 11/22/16 14:29 WITHDRAWAL SYMPTOMS. Plan: CONTINUE DETOX. ADVISED PATIENT TO FOLLOW-UP WITH [facility] / REHAB MEDICAL PROVIDER AFTER DISCHARGE FROM DETOX FOR GENERAL MEDICAL ASSESSMENT AND FOR ABNORMAL ADMISSION LAB VALUES.
--- NOTE | 2016-11-22 16:17 | EKG ---
Test Reason : Blood Pressure : / mmHG Vent. Rate : 100 BPM Atrial Rate : 100 BPM P-R Int : 190 ms QRS Dur : 090 ms QT Int : 368 ms P-R-T Axes : 070 030 070 degrees QTc Int : 474 ms NORMAL SINUS RHYTHM SEPTAL INFARCT , AGE UNDETERMINED ABNORMAL ECG NO PREVIOUS ECGS AVAILABLE Confirmed by JULES VELARDE MD ([id number]) on 11/22/2016 4:17:25 PM Referred By: Confirmed By:JULES VELARDE MD
[2016-11-22] MEDS: QUEtiapine FUMARATE 50 MG TABLET PO SCH (22:39)
[2016-11-22] MEDS: chlordiazePOXIDE 5 MG CAPSULE PO SCH (22:39)
[2016-11-22] MEDS: ATORVASTATIN CA 20 MG TABLET (FP) PO SCH (22:39)
[2016-11-22] MEDS: THIAMINE HCL 100 MG TABLET (FP) PO SCH (22:40)
[2016-11-22] MEDS: MINERAL OIL/PETROLAT/WATER TOPICAL CREAM 454 GM JAR TP SCH (22:40)
[2016-11-23] MEDS: chlordiazePOXIDE 5 MG CAPSULE PO SCH ×3 (06:01→18:01)
[2016-11-23] MEDS: CHOLECALCIFEROL (VITAMIN D3) 1,000 UNIT TABLET (FP) PO SCH (10:35)
[2016-11-23] MEDS: PRENATAL VITAMINS W/ FOLIC ACID TABLET (FP) PO SCH (10:35)
[2016-11-23] MEDS: amLODIPine BESYLATE 10 MG TABLET (FP) PO SCH (10:36)
[2016-11-23] MEDS: NICOTINE 14 MG/24 HOURS TOPICAL PATCH TD SCH (10:36)
[2016-11-23] MEDS: ENALAPRIL MALEATE 10 MG TABLET (FP) PO SCH (10:36)
[2016-11-23] MEDS ORDERED: ONDANSETRON 4 MG TABLET PO ONE (11:14)
--- NOTE | 2016-11-23 14:12 | PN ---
BHS Progress Note (SOAP) Subjective: Nausea, tremor, chills, sweating, interrupted sleep Objective: 11/23/16 14:11 Last Vital Signs Temp Pulse Resp BP Pulse Ox 97.3 F L 94 H 16 132/74 11/23/16 13:49 11/23/16 13:49 11/23/16 13:49 11/23/16 13:49 Laboratory Tests 11/20/16 11/21/16 11/21/16 22:04 06:00 06:00 WBC 6.1 D RBC 4.64 Hgb 15.8 H D Hct 47.0 H MCV 101.3 H MCHC 33.7 RDW 13.5 Plt Count 227 MPV 8.0 Sodium 138 Potassium 3.7 Chloride 103 Carbon Dioxide 22 Anion Gap 13 BUN 9 Creatinine 0.8 Creat Clearance w eGFR > 60 Random Glucose 83 Calcium 9.7 Total Bilirubin 0.4 AST 108 H D ALT 80 H D Alkaline Phosphatase 136 H D Total Protein 9.6 H Albumin 3.2 L Urine Color Red Urine Appearance Clear Urine pH 5.0 Ur Specific [place] 1.006 Urine Protein Negative Urine Glucose (UA) Negative Urine Ketones Negative Urine Blood 1+ H Urine Nitrite Negative Urine Bilirubin Negative Urine Urobilinogen Negative Ur Leukocyte Esterase 3+ H D Urine RBC 10 Urine WBC 11 Ur Epithelial Cells Few Urine Bacteria Rare Urine Mucus Rare Urine Yeast Rare RPR Titer 11/21/16 11/22/16 06:00 08:00 WBC RBC Hgb Hct MCV MCHC RDW Plt Count MPV Sodium Potassium Chloride Carbon Dioxide Anion Gap BUN Creatinine Creat Clearance w eGFR Random Glucose Calcium Total Bilirubin AST ALT Alkaline Phosphatase Total Protein Albumin Urine Color Straw Urine Appearance Clear Urine pH 7.0 D Ur Specific [place] 1.010 Urine Protein Negative Urine Glucose (UA) Negative Urine Ketones Negative Urine Blood Negative Urine Nitrite Negative Urine Bilirubin Negative Urine Urobilinogen Negative Ur Leukocyte Esterase 2+ H Urine RBC 1 Urine WBC 4 Ur Epithelial Cells Rare Urine Bacteria Rare Urine Mucus Urine Yeast RPR Titer Nonreactive Labs noted Assessment: 11/23/16 14:12 Withdrawal symptoms Plan: Continue detox
[2016-11-23] MEDS ORDERED: ONDANSETRON 4 MG TABLET PO PRN (19:00)
[2016-11-23] MEDS: THIAMINE HCL 100 MG TABLET (FP) PO SCH (22:27)
[2016-11-23] MEDS: chlordiazePOXIDE HCL 10 MG CAPSULE PO SCH (22:27)
[2016-11-23] MEDS: MINERAL OIL/PETROLAT/WATER TOPICAL CREAM 454 GM JAR TP SCH (22:27)
[2016-11-23] MEDS: QUEtiapine FUMARATE 50 MG TABLET PO SCH (22:27)
[2016-11-23] MEDS: ATORVASTATIN CA 20 MG TABLET (FP) PO SCH (22:27)
[2016-11-24] MEDS: chlordiazePOXIDE HCL 10 MG CAPSULE PO SCH ×3 (05:45→17:32)
--- NOTE | 2016-11-24 08:25 | PN ---
BHS Progress Note (SOAP) Subjective: ALERT,IRRITABLE,INTERRUPTED SLEEP,PAIN IN THE BODY FEEL WEAK Objective: 11/24/16 08:23 Vital Signs Temperature 96.4 F L 11/24/16 06:37 Pulse Rate 95 H 11/24/16 06:37 Respiratory Rate 20 11/24/16 06:37 Blood Pressure 130/76 11/24/16 06:37 O2 Sat by Pulse Oximetry (%) Assessment: 11/24/16 08:23 WITHDRAWAL SYMPTOM Plan: CONTINUE DETOX,DISCHARGE IN AM
[2016-11-24] MEDS: PRENATAL VITAMINS W/ FOLIC ACID TABLET (FP) PO SCH (10:32)
[2016-11-24] MEDS: amLODIPine BESYLATE 10 MG TABLET (FP) PO SCH (10:33)
[2016-11-24] MEDS: CHOLECALCIFEROL (VITAMIN D3) 1,000 UNIT TABLET (FP) PO SCH (10:33)
[2016-11-24] MEDS: ENALAPRIL MALEATE 10 MG TABLET (FP) PO SCH (10:33)
[2016-11-24] MEDS: NICOTINE 14 MG/24 HOURS TOPICAL PATCH TD SCH (10:33)
[2016-11-24] MEDS: THIAMINE HCL 100 MG TABLET (FP) PO SCH (22:20)
[2016-11-24] MEDS: QUEtiapine FUMARATE 50 MG TABLET PO SCH (22:20)
[2016-11-24] MEDS: ATORVASTATIN CA 20 MG TABLET (FP) PO SCH (22:20)
[2016-11-24] MEDS: MINERAL OIL/PETROLAT/WATER TOPICAL CREAM 454 GM JAR TP SCH (23:44)
--- NOTE | 2016-11-25 08:26 | PN ---
S Progress Note (SOAP) Subjective: ALERT,NO COMPLAINT Objective: 11/25/16 08:25 Vital Signs Temperature 97.9 F 11/25/16 06:00 Pulse Rate 81 11/25/16 06:00 Respiratory Rate 16 11/25/16 06:00 Blood Pressure 146/91 11/25/16 06:00 O2 Sat by Pulse Oximetry (%) Assessment: 11/25/16 08:25 DETOX COMPLETED,NO WITHDRAWAL SYMPTOM Plan: DISCHARGE TODAY,FOLLOW UP WITH AFTER CARE PROGRAM ARRANGEMENT AND PMD FOR MEDICAL PROBLEM
--- NOTE | 2016-11-25 08:32 | DS ---
[facility] Detox Discharge Summary Admission Date: 11/20/16 Discharge Date: 11/25/16 - History Present History: Alcohol Dependence, Cocaine Dependence Additional Comments: FOLLOW UP WITH [facility] PROGRAM ARRANGEMENT AND PMD FOR MEDICAL PROBLEM Pertinent Past History: AIDS ASTHMA HEPATITIS C NICOTINE DEPENDENCE HYPERLIPIDEMIA POSITIVE PPD DEPRESSION - Physical Exam Results Vital Signs: Vital Signs Temperature 97.9 F 11/25/16 06:00 Pulse Rate 81 11/25/16 06:00 Respiratory Rate 16 11/25/16 06:00 Blood Pressure 146/91 11/25/16 06:00 O2 Sat by Pulse Oximetry (%) Pertinent Admission Physical Exam Findings: WITHDRAWAL SYMPTOM - Treatment Hospital Course: Detox Protocol Followed, Detoxed Safely, Responded well, Discharged Condition Good Patient has Accepted a Rehab Referral to: DECLINED - Medication Discharge Medications: Ambulatory Orders Albuterol Sulfate Inhaler - [Ventolin HFA Inhaler -] 2 inh IH Q4H PRN #1 inhaler 04/18/16 Abacavir/Dolutegravir/Lamivudi [Triumeq Tablet] 1 each PO DAILY 07/28/16 Amlodipine Besylate [Norvasc -] 10 mg PO DAILY 07/28/16 Atorvastatin Ca [Lipitor] 20 mg PO HS 07/28/16 Cholecalciferol (Vitamin D3) [Vitamin D3] 2,000 unit PO DAILY 07/28/16 Meloxicam 15 mg PO DAILY 07/28/16 Quetiapine Fumarate [Seroquel -] 200 mg PO HS #30 tab 07/29/16 Bupropion HCl [Wellbutrin Xl -] 150 mg PO DAILY 11/20/16 Enalapril Maleate [Vasotec -] 10 mg PO DAILY 11/20/16 - Diagnosis (1) Alcohol dependence with uncomplicated withdrawal Current Visit: Yes Status: Acute (2) Cocaine dependence, uncomplicated Current Visit: Yes Status: Acute (3) Nicotine dependence Current Visit: Yes Status: Acute (4) Acquired immune deficiency syndrome (AIDS) Current Visit: Yes Status: Chronic (5) Asthma Current Visit: Yes Status: Chronic Qualifiers: Asthma severity: mild intermittent Asthma complication type: uncomplicated Qualified Code(s): J45.20 - Mild intermittent asthma, uncomplicated (6) HTN (hypertension) Current Visit: Yes Status: Chronic Qualifiers: Hypertension type: essential hypertension Qualified Code(s): I10 - Essential (primary) hypertension (7) Hyperlipidemia Current Visit: Yes Status: Chronic Qualifiers: Hyperlipidemia type: pure hypercholesterolemia Qualified Code(s): E78.00 - Pure hypercholesterolemia, unspecified; E78.0 - Pure hypercholesterolemia (8) Use of cane as ambulatory aid Current Visit: Yes Status: Chronic (9) Hepatitis C Current Visit: Yes Status: Resolved Qualifiers: Viral hepatitis chronicity: chronic Hepatic coma status: without hepatic coma Qualified Code(s): B18.2 - Chronic viral hepatitis C (10) Positive PPD, treated Current Visit: Yes Status: Resolved - AMA Did Patient Leave Against Medical Advice: No
[2016-11-25 09:42] VITALS: BP 155/65; PULSE 85; TEMP 97
[2016-11-25] MEDS: CHOLECALCIFEROL (VITAMIN D3) 1,000 UNIT TABLET (FP) PO SCH (09:47)
[2016-11-25] MEDS: amLODIPine BESYLATE 10 MG TABLET (FP) PO SCH (09:47)
[2016-11-25] MEDS: ENALAPRIL MALEATE 10 MG TABLET (FP) PO SCH (09:47)
[2016-11-25] MEDS: PRENATAL VITAMINS W/ FOLIC ACID TABLET (FP) PO SCH (09:47)
[2016-11-25] MEDS: NICOTINE 14 MG/24 HOURS TOPICAL PATCH TD SCH (09:48)
== END 2016-11-25 09:55 | disposition home or self-care (01) | DRG 774 ==
LOC: YASAS 12:08 → Y6N 18:16
PROVIDERS: ADMIT Internal Medicine Addiction Medicine; ATTEND Internal Medicine Addiction Medicine
PROC: HZ2ZZZZ Detoxification Services for Substance Abuse Treatment (ICD-10-PCS; principal; 2016-11-25)
DX: F10.230 Alcohol dependence with withdrawal, uncomplicated (principal); F14.20 Cocaine dependence, uncomplicated; F17.210 Nicotine dependence, cigarettes, uncomplicated; F19.24 Other psychoactive substance dependence with psychoactive substance-induced mood disorder; G47.00 Insomnia, unspecified; B20 Human immunodeficiency virus [HIV] disease; J45.20 Mild intermittent asthma, uncomplicated; I10 Essential (primary) hypertension; E78.00 Pure hypercholesterolemia, unspecified; R76.11 Nonspecific reaction to tuberculin skin test without active tuberculosis; R26.2 Difficulty in walking, not elsewhere classified
CPT/HCPCS: 36415; 80053; 81003; 81015; 85027; 86593; 93005; 93010

== ENCOUNTER 2017-02-02 11:21 | Inpatient (IN) | payer OTHER ==
[2017-02-02 13:30] VITALS: BMI 23.1
--- NOTE | 2017-02-02 16:06 | HP ---
CIWA Score - CIWA Score Nausea/Vomitin-No Nausea/No Vomiting Muscle Tremors: 4-Moderate,w/Arms Extend Anxiety: 4-Mod. Anxious/Guarded Agitation: 4-Moderately Restless Paroxysmal Sweats: 1-Minimal Palms Moist Orientation: 0-Oriented Tacttile Disturbances: 3-Moderate Itch/Numb/Burn Auditory Disturbances: 0-None Visual Disturbances: 0-None Headache: 0-None Present CIWA-Ar Total Score: 16 Admission ROS BHS - HPI Chief Complaint: DETOX TX FOR ALCOHOL DEPENDENCE Allergies/Adverse Reactions: Allergies Allergy/AdvReac Type Severity Reaction Status Date / Time No Known Drug Allergies Allergy Unknown Verified 02/02/17 16:45 mushroom Allergy Rash Verified 02/02/17 16:45 History of Present Illness: 62 Y/O AA/FEMALE WITH A HX OF ALCOHOL AND COCAINE DEPENDENCE SEEKING DETOX TX Exam Limitations: No Limitations - Ebola screening Have you traveled outside of the country in the last 21 days: No Have you had contact with anyone from an Ebola affected area: No Have you been sick,other than usual withdrawal symptoms: Yes Do you have a fever: No - Review of Systems Constitutional: Loss of Appetite, Night Sweats, Changes in sleep (ON SEROQUEL) EENT: reports: Blurred Vision (WEARS READING GLASSES), Tearing, Nose Congestion , Dental Problems (MISSING MAJORITY OF TEETH.) Respiratory: reports: Shortness of Breath (ASTHMA HX), Wheezing Cardiac: reports: Lightheadedness GI: reports: Poor Appetite, Poor Fluid Intake, Other (ABDOMINAL HERNIA) : reports: No Symptoms Reported Musculoskeletal: reports: Back Pain, Joint Pain, Muscle Pain Integumentary: reports: No Symptoms Reported Neuro: reports: Headache, Numbness, Tingling, Tremors, Unsteady Gait (USES CANE) , Dizziness Endocrine: reports: No Symptoms Reported Hematology: reports: No Symptoms Reported Psychiatric: reports: Orientated x3, Anxious, Depressed Other Systems: Reviewed and Negative Patient History - Patient Medical History Hx Anemia: No Hx Asthma: Yes (MDI) Hx Chronic Obstructive Pulmonary Disease (COPD): No Hx Cancer: No Hx Cardiac Disorders: No Hx Congestive Heart Failure: No Hx Hypertension: Yes (ON VASOTEC AND ANOTHER MED(NOT SURE)) Hx Hypercholesterolemia: Yes (ON LIPITOR) Hx Pacemaker: No HX Cerebrovascular Accident: No Hx Seizures: No Hx Dementia: No Hx Diabetes: No Hx Gastrointestinal Disorders: No Hx Liver Disease: No Hx Genitourinary Disorders: No Hx Sexually Transmitted Disorders: Yes (Syphillis Tx with 3 Im injections) Hx Renal Disease (ESRD): No Hx Thyroid Disease: No Hx Human Immunodeficiency Virus (HIV): Yes (SINCE 1989;ON MEDS;HX OIs/AIDS.) Hx Hepatitis C: Yes Hx Depression: Yes Hx Suicide Attempt: No (DENIES) Hx Bipolar Disorder: No Hx Schizophrenia: No - Patient Surgical History Past Surgical History: Yes Hx Neurologic Surgery: No Hx Cataract Extraction: No Hx Cardiac Surgery: No Hx Lung Surgery: No Hx Breast Surgery: No Hx Breast Biopsy: No Hx Abdominal Surgery: Yes (2001-umbillical hernia) Hx Appendectomy: No Hx Cholecystectomy: No Hx Genitourinary Surgery: No Hx Section: Yes (1981) Hx Orthopedic Surgery: No Hx Hysterectomy: Yes (1999) Anesthesia Reaction: No - PPD History Results: NEGATIVE CHEST - Reproductive History Last Menstrual Period: 08/17/99 - Smoking Cessation Smoking history: Current every day smoker Have you smoked in the past 12 months: Yes Aproximately how many cigarettes per day: 4 Cigars Per Day: 0 Hx Chewing Tobacco Use: No Initiated information on smoking cessation: Yes 'Breaking Loose' booklet given: 02/02/17 - Substances Abused Alcohol Route: Oral Frequency: Daily Amount used: 2 pks beer/ 2 fifths wine Age of first use: 10 Date of Last Use: 02/02/17 Crack Route: Smoking Frequency: 3-6 times per week Amount used: $50 Age of first use: 10 Date of Last Use: 01/28/17 Family Disease History - Family Disease History Family Disease History: Heart Disease: Mother (HEART ATTACK ), Other: Father ( CIRRHOSIS LIVER) Admission Physical Exam [facility] - Vital Signs Vital Signs: Vital Signs - 24 hr 02/02/17 13:27 Temperature 97.2 F L Pulse Rate 102 H Respiratory 20 Rate Blood Pressure 147/100 - Physical General Appearance: Yes: Moderate Distress, Alcohol on Breath, Intoxicated, Irritable, Anxious HEENTM: Yes: EOMI, Normocephalic, OBEY, Pharynx Normal, Nasal Congestion, Rhinorrhea Respiratory: Yes: Chest Non-Tender, Lungs Clear, Normal Breath Sounds, No Respiratory Distress Neck: Yes: Supple, Trachea in good position Breast: Yes: Breast Exam Deferred Cardiology: Yes: Regular Rhythm, Regular Rate, S1, S2 Abdominal: Yes: Normal Bowel Sounds, Non Tender, Soft, Protuberent Genitourinary: Yes: Other (N/C) Back: Yes: Within Normal Limits Musculoskeletal: Yes: full range of Motion, Gait Steady Extremities: Yes: Normal Range of Motion, Non-Tender 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, Fully Oriented, Alert Integumentary: Yes: Dry, Warm Lymphatic: Yes: Within Normal Limits - Diagnostic (1) Alcohol dependence with uncomplicated withdrawal Current Visit: Yes Status: Acute (2) Cocaine dependence, uncomplicated Current Visit: Yes Status: Acute (3) Nicotine dependence Current Visit: Yes Status: Chronic (4) Acquired immune deficiency syndrome (AIDS) Current Visit: Yes Status: Chronic (5) Asthma Current Visit: Yes Status: Chronic Qualifiers: Asthma severity: mild intermittent Asthma complication type: uncomplicated Qualified Code(s): J45.20 - Mild intermittent asthma, uncomplicated (6) HTN (hypertension) Current Visit: Yes Status: Chronic Qualifiers: Hypertension type: essential hypertension Qualified Code(s): I10 - Essential (primary) hypertension (7) Hyperlipidemia Current Visit: Yes Status: Chronic Qualifiers: Hyperlipidemia type: pure hypercholesterolemia Qualified Code(s): E78.00 - Pure hypercholesterolemia, unspecified; E78.0 - Pure hypercholesterolemia (8) Use of cane as ambulatory aid Current Visit: Yes Status: Chronic Comment: ARTHRITIS OF THE RIGHT LEG Cleared for Admission [facility] - Detox or Rehab [facility] Level of Care: Medically Managed Detox Regimen/Protocol: Librium [facility] Breath Alcohol Content Breath Alcohol Content: 0.070 Urine Pregancy Test - Result Urine Test Results: Negative- NO Line Present Urine Drug Screen - Results Drug Screen Negative: No Urine Drug Screen Results: VINCENT-Cocaine
[2017-02-02] MEDS ORDERED: chlordiazePOXIDE HCL 25 MG CAPSULE PO PRN (16:18)
[2017-02-02] MEDS ORDERED: MAGNESIUM CITRATE 300 ML BOTTLE PO PRN (16:18)
[2017-02-02] MEDS ORDERED: ACETAMINOPHEN 325 MG TABLET (FP) PO PRN (16:18)
[2017-02-02] MEDS ORDERED: MENTHOL/PHENOL 1 EACH UD MM PRN (16:18)
[2017-02-02] MEDS ORDERED: P-EPHED 60MG/TRIPROLIDI 2.5MG TABLET PO PRN (16:18)
[2017-02-02] MEDS ORDERED: NICOTINE POLACRILEX 2 MG GUM BC PRN (16:18)
[2017-02-02] MEDS ORDERED: MAG HYDROX/AL HYDROX/SIMETH 30 ML UNIT-DOSE CUP PO PRN (16:18)
[2017-02-02] MEDS ORDERED: guaiFENesin/D-METHORPHAN HB 10 ML UNIT-DOSE CUPS PO PRN (16:18)
[2017-02-02] MEDS ORDERED: LOPERAMIDE HCL 2 MG CAPSULE PO PRN (16:18)
[2017-02-02] MEDS ORDERED: IBUPROFEN 400 MG TABLET (FP) PO PRN (16:18)
[2017-02-02] MEDS ORDERED: MAGNESIUM HYDROX 2400MG/30ML ORAL SUSPENSION 30 ML CUP PO PRN (16:18)
[2017-02-02] MEDS: chlordiazePOXIDE HCL 25 MG CAPSULE PO SCH ×2 (18:58→22:37)
[2017-02-02] MEDS: NICOTINE 14 MG/24 HOURS TOPICAL PATCH TD SCH (19:00)
[2017-02-02] MEDS: THIAMINE HCL 100 MG TABLET (FP) PO SCH (22:37)
[2017-02-02] MEDS: diphenhydrAMINE HCL 50 MG CAPSULE PO PRN (22:38)
[2017-02-02 23:20] LABS: URINE APPEARANCE SLCLOUDY; URINE BILIRUBIN NEGATIVE (NEGATIVE); URINE COLOR AMBER; URINE GLUCOSE (UA) NEGATIVE (NEGATIVE); URINE KETONE NEGATIVE (NEGATIVE); URINE NITRITE NEGATIVE (NEGATIVE); URINE PROTEIN NEGATIVE (NEGATIVE); URINE UROBILINOGEN NEGATIVE E.U./dl (0.2-1.0)
[2017-02-02 23:21] LABS: URINE BLOOD 1+ (NEGATIVE); URINE LEUK ESTERASE 3+ (NEGATIVE)
[2017-02-02 23:27] LABS: URINE HYALINE CAST 4 /lpf; URINE MUCUS RARE; URINE RBC 4 /hpf (0-3); URINE WBC 8 /hpf (3-5)
[2017-02-02] MEDS ORDERED: amLODIPine BESYLATE 10 MG TABLET (FP) PO ONE (23:49)
[2017-02-03] MEDS: chlordiazePOXIDE HCL 25 MG CAPSULE PO SCH ×4 (06:05→22:36)
--- NOTE | 2017-02-03 08:50 | CONSULT ---
[facility] Psychiatric Consult - Data Date of interview: 02/03/17 Admission source: [facility] Identifying data: This is 52 years old female ambulating with cane, with no psychiatric hospitalization history inbtoxicated with: Alcohol, Cocaine and Nicotine Substance Abuse History: Drug Screen Negative: No. Urine Drug Screen Results: VINCENT-Cocaine. - Smoking Cessation. Smoking history: Current every day smoker. Have you smoked in the past 12 months: Yes. Aproximately how many cigarettes per day: 4. Cigars Per Day: 0. Hx Chewing Tobacco Use: No Medical History: AIDS, Asthma, HTN, Hypelipidemia, HepC+, PPD + history Psychiatric History: Patient reports depression andinsomnia, reports taking prior to admission: Seroquel 300mg po qhs Physical/Sexual Abuse/Trauma History: Unclear Additional Comment: Drug Screen Negative: No. Urine Drug Screen Results: VINCENT- Cocaine. Seroquel 300mg po qhs Mental Status Exam - Mental Status Exam Alert and Oriented to: Person Cognitive Function: Fair Patient Appearance: Unkempt Mood: Sad Affect: Flat Patient Behavior: Sedated Speech Pattern: Delayed Voice Loudness: Mildly Soft/Quiet Thought Process: Circumstantial Thought Disorder: Being Controlled Hallucinations: Denies Suicidal Ideation: Denies Homicidal Ideation: Denies Insight/Judgement: Fair Sleep: Difficulty falling asleep Appetite: Weight loss Muscle strength/Tone: Mild Hypotonicity Gait/Station: Other Additional Comments: Seroquel 300mg po qhs Psychiatric Findings - Problem List ([place] 1, 2,3) (1) Alcohol dependence with uncomplicated withdrawal Current Visit: Yes Status: Acute (2) Cocaine dependence, uncomplicated Current Visit: Yes Status: Acute (3) Nicotine dependence Current Visit: Yes Status: Chronic (4) Substance induced mood disorder Current Visit: No Status: Chronic (5) Substance-induced sleep disorder Current Visit: No Status: Suspected - Initial Treatment Plan Initial Treatment Plan: Seroquel 200mg po qhs
[2017-02-03 09:46] LABS: MCH 34.4 pg (25.7-33.7); MCHC 33.7 g/dl (32.0-36.0); MEAN CELL VOLUME 102.1 fl (80-96); MEAN PLT VOLUME 8.2 fl (7.5-11.1); PLATELET COUNT 214 K/MM3 (134-434); RDW 14.6 % (11.6-15.6); WHITE BLOOD COUNT 5.5 K/mm3 (4.0-10.0)
[2017-02-03 09:55] LABS: ALBUMIN 3.1 g/dl (3.4-5.0); ANION GAP 6 (8-16); CALCIUM 8.9 mg/dL (8.5-10.1); CO2 26 mmol/L (21-32); GLUCOSE,RANDOM 89 mg/dL (74-106); SGOT/AST 91 U/L (15-37)
[2017-02-03 09:58] LABS: ALK PHOS 156 U/L (45-117); BILIRUBIN,TOTAL 0.9 mg/dL (0.2-1.0); CREATININE 0.7 mg/dL (0.55-1.02); SGPT/ALT 58 U/L (12-78)
[2017-02-03] MEDS: PRENATAL VITAMINS W/ FOLIC ACID TABLET (FP) PO SCH (10:57)
[2017-02-03] MEDS: ENALAPRIL MALEATE 10 MG TABLET (FP) PO SCH (10:58)
[2017-02-03] MEDS: NICOTINE 14 MG/24 HOURS TOPICAL PATCH TD SCH (10:58)
[2017-02-03] MEDS: amLODIPine BESYLATE 10 MG TABLET (FP) PO SCH (10:58)
[2017-02-03] MEDS ORDERED: ONDANSETRON *ODT* 4 MG TABLET SL PRN (11:06)
--- NOTE | 2017-02-03 11:06 | PN ---
S CIWA - CIWA Score Nausea/Vomitin Muscle Tremors: 2 Anxiety: 3 Agitation: 2 Paroxysmal Sweats: 3 Orientation: 0-Oriented Tacttile Disturbances: 2-Mild Itch/Numbness/Burn Auditory Disturbances: 0-None Visual Disturbances: 0-None Headache: 0-None Present CIWA-Ar Total Score: 15 S Progress Note (SOAP) Subjective: interrupted sleep, sweats, nausea, Objective: 02/03/17 11:04 Vital Signs Temperature 96.6 F L 02/03/17 09:40 Pulse Rate 100 H 02/03/17 09:40 Respiratory Rate 16 02/03/17 09:40 Blood Pressure 148/79 02/03/17 09:40 O2 Sat by Pulse Oximetry (%) Laboratory Tests 02/02/17 02/03/17 02/03/17 23:05 06:00 06:00 WBC 5.5 RBC 4.23 Hgb 14.5 Hct 43.2 MCV 102.1 H MCHC 33.7 RDW 14.6 Plt Count 214 MPV 8.2 Sodium 140 Potassium 4.2 Chloride 108 H Carbon Dioxide 26 Anion Gap 6 L BUN 13 D Creatinine 0.7 Creat Clearance w eGFR > 60 Random Glucose 89 Calcium 8.9 Total Bilirubin 0.9 D AST 91 H ALT 58 D Alkaline Phosphatase 156 H Total Protein 9.0 H Albumin 3.1 L Urine Color [place]ina Urine Appearance Slcloudy Urine pH 5.0 D Urine Protein Negative Urine Glucose (UA) Negative Urine Ketones Negative Urine Blood 1+ H Urine Nitrite Negative Urine Bilirubin Negative Urine Urobilinogen Negative Ur Leukocyte Esterase 3+ H Urine RBC 4 Urine WBC 8 Ur Epithelial Cells Moderate Hyaline Casts 4 Urine Mucus Rare pt aox3 in nad lying in bed OD opacity Assessment: 02/03/17 11:05 withdrawal sx's Plan: cont. detox increase fluids zofran prn ensure bid
[2017-02-03] MEDS ORDERED: ALBUTEROL SO4 6.7 GM HFA INHALER IH PRN (11:22)
--- NOTE | 2017-02-03 14:47 | EKG ---
Test Reason : Blood Pressure : / mmHG Vent. Rate : 102 BPM Atrial Rate : 102 BPM P-R Int : 178 ms QRS Dur : 092 ms QT Int : 380 ms P-R-T Axes : 069 045 072 degrees QTc Int : 495 ms SINUS TACHYCARDIA POSSIBLE LEFT ATRIAL ENLARGEMENT INCOMPLETE RIGHT BUNDLE BRANCH BLOCK BORDERLINE ECG WHEN COMPARED WITH ECG OF 20-NOV-2016 18:41, NO SIGNIFICANT CHANGE WAS FOUND Confirmed by PALLAVI DANIEL MD ([id number]) on 02/03/2017 2:47:18 PM Referred By: Leigh Ann Luna Confirmed By:PALLAVI DANIEL MD
[2017-02-03] MEDS: THIAMINE HCL 100 MG TABLET (FP) PO SCH (22:35)
[2017-02-03] MEDS: ATORVASTATIN CA 20 MG TABLET (FP) PO SCH (22:36)
[2017-02-03] MEDS: QUEtiapine FUMARATE 200 MG TABLET PO SCH (22:36)
[2017-02-03] MEDS: TETRAHYDROZOLINE HCL 1 DROP DROPS OU PRN (22:37)
[2017-02-04] MEDS: chlordiazePOXIDE HCL 25 MG CAPSULE PO SCH ×2 (05:21→10:35)
[2017-02-04] MEDS: PRENATAL VITAMINS W/ FOLIC ACID TABLET (FP) PO SCH (10:35)
[2017-02-04] MEDS: ENALAPRIL MALEATE 10 MG TABLET (FP) PO SCH (10:35)
[2017-02-04] MEDS: amLODIPine BESYLATE 10 MG TABLET (FP) PO SCH (10:35)
[2017-02-04] MEDS: NICOTINE 14 MG/24 HOURS TOPICAL PATCH TD SCH (10:37)
--- NOTE | 2017-02-04 13:14 | PN ---
[facility] CIWA - CIWA Score Nausea/Vomitin Muscle Tremors: 2 Anxiety: 3 Agitation: 2 Paroxysmal Sweats: 3 Orientation: 0-Oriented Tacttile Disturbances: 1-Very Mild Itch/Numbness Auditory Disturbances: 0-None Visual Disturbances: 0-None Headache: 0-None Present CIWA-Ar Total Score: 13 [facility] Progress Note (SOAP) Subjective: interrupted sleep, sweats, mild shakes Objective: 02/04/17 13:11 Vital Signs Temperature 98 F 02/04/17 10:01 Pulse Rate 91 H 02/04/17 10:01 Respiratory Rate 18 02/04/17 10:01 Blood Pressure 140/83 02/04/17 10:01 O2 Sat by Pulse Oximetry (%) Laboratory Tests 02/02/17 02/03/17 02/03/17 23:05 06:00 06:00 WBC 5.5 RBC 4.23 Hgb 14.5 Hct 43.2 MCV 102.1 H MCHC 33.7 RDW 14.6 Plt Count 214 MPV 8.2 Sodium 140 Potassium 4.2 Chloride 108 H Carbon Dioxide 26 Anion Gap 6 L BUN 13 D Creatinine 0.7 Creat Clearance w eGFR > 60 Random Glucose 89 Calcium 8.9 Total Bilirubin 0.9 D AST 91 H ALT 58 D Alkaline Phosphatase 156 H Total Protein 9.0 H Albumin 3.1 L Urine Color Rhina Urine Appearance Slcloudy Urine pH 5.0 D Urine Protein Negative Urine Glucose (UA) Negative Urine Ketones Negative Urine Blood 1+ H Urine Nitrite Negative Urine Bilirubin Negative Urine Urobilinogen Negative Ur Leukocyte Esterase 3+ H Urine RBC 4 Urine WBC 8 Ur Epithelial Cells Moderate Hyaline Casts 4 Urine Mucus Rare RPR Titer 02/03/17 06:00 WBC RBC Hgb Hct MCV MCHC RDW Plt Count MPV Sodium Potassium Chloride Carbon Dioxide Anion Gap BUN Creatinine Creat Clearance w eGFR Random Glucose Calcium Total Bilirubin AST ALT Alkaline Phosphatase Total Protein Albumin Urine Color Urine Appearance Urine pH Urine Protein Urine Glucose (UA) Urine Ketones Urine Blood Urine Nitrite Urine Bilirubin Urine Urobilinogen Ur Leukocyte Esterase Urine RBC Urine WBC Ur Epithelial Cells Hyaline Casts Urine Mucus RPR Titer Nonreactive pt aox3 lying in bed with cough , clear phlegm lungs clear to a/p Assessment: 02/04/17 13:12 withdrawal sx's uri Plan: cont. detox increase fluids robitussin dm prn throat lozenges report any fever to nurses /staff
[2017-02-04] MEDS: chlordiazePOXIDE 5 MG CAPSULE PO SCH ×2 (18:30→22:50)
[2017-02-04] MEDS: ATORVASTATIN CA 20 MG TABLET (FP) PO SCH (22:50)
[2017-02-04] MEDS: THIAMINE HCL 100 MG TABLET (FP) PO SCH (22:50)
[2017-02-04] MEDS: TETRAHYDROZOLINE HCL 1 DROP DROPS OU PRN (22:50)
[2017-02-04] MEDS: QUEtiapine FUMARATE 200 MG TABLET PO SCH (22:50)
[2017-02-04] MEDS: diphenhydrAMINE HCL 50 MG CAPSULE PO PRN (22:52)
[2017-02-05] MEDS: chlordiazePOXIDE 5 MG CAPSULE PO SCH ×2 (06:02→10:31)
[2017-02-05] MEDS: amLODIPine BESYLATE 10 MG TABLET (FP) PO SCH (10:31)
[2017-02-05] MEDS: ENALAPRIL MALEATE 10 MG TABLET (FP) PO SCH (10:31)
[2017-02-05] MEDS: PRENATAL VITAMINS W/ FOLIC ACID TABLET (FP) PO SCH (10:31)
[2017-02-05] MEDS: TETRAHYDROZOLINE HCL 1 DROP DROPS OU PRN ×2 (10:33→22:35)
[2017-02-05] MEDS: NICOTINE 14 MG/24 HOURS TOPICAL PATCH TD SCH (10:33)
--- NOTE | 2017-02-05 12:58 | PN ---
BHS Progress Note (SOAP) Subjective: feeling better today less cough , no fever, Objective: 02/05/17 12:57 Vital Signs Temperature 96.3 F L 02/05/17 09:48 Pulse Rate 92 H 02/05/17 09:48 Respiratory Rate 16 02/05/17 09:48 Blood Pressure 137/94 02/05/17 09:48 O2 Sat by Pulse Oximetry (%) Laboratory Tests 02/02/17 02/03/17 02/03/17 23:05 06:00 06:00 WBC 5.5 RBC 4.23 Hgb 14.5 Hct 43.2 MCV 102.1 H MCHC 33.7 RDW 14.6 Plt Count 214 MPV 8.2 Sodium 140 Potassium 4.2 Chloride 108 H Carbon Dioxide 26 Anion Gap 6 L BUN 13 D Creatinine 0.7 Creat Clearance w eGFR > 60 Random Glucose 89 Calcium 8.9 Total Bilirubin 0.9 D AST 91 H ALT 58 D Alkaline Phosphatase 156 H Total Protein 9.0 H Albumin 3.1 L Urine Color Rhina Urine Appearance Slcloudy Urine pH 5.0 D Urine Protein Negative Urine Glucose (UA) Negative Urine Ketones Negative Urine Blood 1+ H Urine Nitrite Negative Urine Bilirubin Negative Urine Urobilinogen Negative Ur Leukocyte Esterase 3+ H Urine RBC 4 Urine WBC 8 Ur Epithelial Cells Moderate Hyaline Casts 4 Urine Mucus Rare RPR Titer 02/03/17 06:00 WBC RBC Hgb Hct MCV MCHC RDW Plt Count MPV Sodium Potassium Chloride Carbon Dioxide Anion Gap BUN Creatinine Creat Clearance w eGFR Random Glucose Calcium Total Bilirubin AST ALT Alkaline Phosphatase Total Protein Albumin Urine Color Urine Appearance Urine pH Urine Protein Urine Glucose (UA) Urine Ketones Urine Blood Urine Nitrite Urine Bilirubin Urine Urobilinogen Ur Leukocyte Esterase Urine RBC Urine WBC Ur Epithelial Cells Hyaline Casts Urine Mucus RPR Titer Nonreactive pt aox3 lying in bed in nad Assessment: 02/05/17 12:57 withdrawal sx;s improved hiv Plan: cont. detox increase fluids d/c in am
[2017-02-05] MEDS: QUEtiapine FUMARATE 200 MG TABLET PO SCH (22:35)
[2017-02-05] MEDS: THIAMINE HCL 100 MG TABLET (FP) PO SCH (22:35)
[2017-02-05] MEDS: chlordiazePOXIDE HCL 10 MG CAPSULE PO SCH ×2 (22:36)
[2017-02-05] MEDS: ATORVASTATIN CA 20 MG TABLET (FP) PO SCH (22:36)
[2017-02-06] MEDS: chlordiazePOXIDE HCL 10 MG CAPSULE PO SCH ×2 (05:49→10:25)
[2017-02-06] MEDS: NICOTINE 14 MG/24 HOURS TOPICAL PATCH TD SCH (10:23)
[2017-02-06] MEDS: amLODIPine BESYLATE 10 MG TABLET (FP) PO SCH (10:23)
[2017-02-06] MEDS: ENALAPRIL MALEATE 10 MG TABLET (FP) PO SCH (10:23)
[2017-02-06] MEDS: PRENATAL VITAMINS W/ FOLIC ACID TABLET (FP) PO SCH (10:24)
--- NOTE | 2017-02-06 10:25 | DS ---
[facility] Detox Discharge Summary Admission Date: 02/02/17 Discharge Date: 02/06/17 - History Present History: Alcohol Dependence, Cocaine Dependence Pertinent Past History: Asthma AIDS HTN Hyperlipidemia - Physical Exam Results Vital Signs: Vital Signs Temperature 97.7 F 02/06/17 06:00 Pulse Rate 84 02/06/17 06:00 Respiratory Rate 16 02/06/17 06:00 Blood Pressure 126/88 02/06/17 06:00 O2 Sat by Pulse Oximetry (%) Pertinent Admission Physical Exam Findings: Withdrawal sx. Laboratory Last Values WBC 5.5 K/mm3 (4.0-10.0) 02/03/17 06:00 RBC 4.23 M/mm3 (3.60-5.2) 02/03/17 06:00 Hgb 14.5 GM/dL (10.7-15.3) 02/03/17 06:00 Hct 43.2 % (32.4-45.2) 02/03/17 06:00 MCV 102.1 fl (80-96) H 02/03/17 06:00 MCHC 33.7 g/dl (32.0-36.0) 02/03/17 06:00 RDW 14.6 % (11.6-15.6) 02/03/17 06:00 Plt Count 214 K/MM3 (134-434) 02/03/17 06:00 MPV 8.2 fl (7.5-11.1) 02/03/17 06:00 Sodium 140 mmol/L (136-145) 02/03/17 06:00 Potassium 4.2 mmol/L (3.5-5.1) 02/03/17 06:00 Chloride 108 mmol/L (98-107) H 02/03/17 06:00 Carbon Dioxide 26 mmol/L (21-32) 02/03/17 06:00 Anion Gap 6 (8-16) L 02/03/17 06:00 BUN 13 mg/dL (7-18) D 02/03/17 06:00 Creatinine 0.7 mg/dL (0.55-1.02) 02/03/17 06:00 Creat Clearance w eGFR > 60 (>60) 02/03/17 06:00 Random Glucose 89 mg/dL (74-106) 02/03/17 06:00 Calcium 8.9 mg/dL (8.5-10.1) 02/03/17 06:00 Total Bilirubin 0.9 mg/dL (0.2-1.0) D 02/03/17 06:00 AST 91 U/L (15-37) H 02/03/17 06:00 ALT 58 U/L (12-78) D 02/03/17 06:00 Alkaline Phosphatase 156 U/L (45-117) H 02/03/17 06:00 Total Protein 9.0 g/dl (6.4-8.2) H 02/03/17 06:00 Albumin 3.1 g/dl (3.4-5.0) L 02/03/17 06:00 Urine Color Rhina 02/02/17 23:05 Urine Appearance Slcloudy 02/02/17 23:05 Urine pH 5.0 (5.0-8.0) D 02/02/17 23:05 Urine Protein Negative (NEGATIVE) 02/02/17 23:05 Urine Glucose (UA) Negative (NEGATIVE) 02/02/17 23:05 Urine Ketones Negative (NEGATIVE) 02/02/17 23:05 Urine Blood 1+ (NEGATIVE) H 02/02/17 23:05 Urine Nitrite Negative (NEGATIVE) 02/02/17 23:05 Urine Bilirubin Negative (NEGATIVE) 02/02/17 23:05 Urine Urobilinogen Negative E.U./dl (0.2-1.0) 02/02/17 23:05 Ur Leukocyte Esterase 3+ (NEGATIVE) H 02/02/17 23:05 Urine RBC 4 /hpf (0-3) 02/02/17 23:05 Urine WBC 8 /hpf (3-5) 02/02/17 23:05 Ur Epithelial Cells Moderate /hpf (FEW) 02/02/17 23:05 Hyaline Casts 4 /lpf 02/02/17 23:05 Urine Mucus Rare 02/02/17 23:05 RPR Titer Nonreactive (NONREACTIVE) 02/03/17 06:00 labs noted - Treatment Hospital Course: Detox Protocol Followed, Detoxed Safely, Responded well, Discharged Condition Good, Rehab Referral Accepted Patient has Accepted a Rehab Referral to: [facility] - Medication Discharge Medications: Ambulatory Orders Albuterol Sulfate Inhaler - [Ventolin HFA Inhaler -] 2 inh IH Q4H PRN #1 inhaler 04/18/16 Abacavir/Dolutegravir/Lamivudi [Triumeq Tablet] 1 each PO DAILY 07/28/16 Amlodipine Besylate [Norvasc -] 10 mg PO DAILY 07/28/16 Atorvastatin Ca [Lipitor] 20 mg PO HS 07/28/16 Enalapril Maleate [Vasotec -] 10 mg PO DAILY 11/20/16 Lidocaine/Prilocaine [Lido-Prilo Alex Pack] 1 each TP TID PRN 02/02/17 Quetiapine Fumarate [Seroquel -] 300 mg PO HS 02/02/17 Quetiapine Fumarate [Seroquel -] 200 mg PO HS #30 tab 02/03/17 - Diagnosis (1) Alcohol dependence with uncomplicated withdrawal Current Visit: Yes Status: Acute (2) Cocaine dependence, uncomplicated Current Visit: Yes Status: Acute (3) Acquired immune deficiency syndrome (AIDS) Current Visit: Yes Status: Chronic (4) Asthma Current Visit: Yes Status: Chronic Qualifiers: Asthma severity: mild intermittent Asthma complication type: uncomplicated Qualified Code(s): J45.20 - Mild intermittent asthma, uncomplicated (5) HTN (hypertension) Current Visit: Yes Status: Chronic Qualifiers: Hypertension type: essential hypertension Qualified Code(s): I10 - Essential (primary) hypertension (6) Hyperlipidemia Current Visit: Yes Status: Chronic Qualifiers: Hyperlipidemia type: pure hypercholesterolemia Qualified Code(s): E78.00 - Pure hypercholesterolemia, unspecified; E78.0 - Pure hypercholesterolemia (7) Nicotine dependence Current Visit: Yes Status: Chronic (8) Use of cane as ambulatory aid Current Visit: Yes Status: Chronic (9) Insomnia Current Visit: Yes Status: Acute (10) Substance induced mood disorder Current Visit: No Status: Chronic (11) Substance-induced sleep disorder Current Visit: No Status: Suspected - AMA Did Patient Leave Against Medical Advice: No
[2017-02-06 11:07] VITALS: BP 149/87; PULSE 91; TEMP 97.2
== END 2017-02-06 10:38 | disposition home or self-care (01) | DRG 774 ==
LOC: YASAS 11:21 → Y6N 18:03
PROVIDERS: ADMIT Internal Medicine; ATTEND Internal Medicine
PROC: HZ2ZZZZ Detoxification Services for Substance Abuse Treatment (ICD-10-PCS; principal; 2017-02-06)
DX: F10.230 Alcohol dependence with withdrawal, uncomplicated (principal); F14.20 Cocaine dependence, uncomplicated; F17.210 Nicotine dependence, cigarettes, uncomplicated; F19.282 Other psychoactive substance dependence with psychoactive substance-induced sleep disorder; F19.24 Other psychoactive substance dependence with psychoactive substance-induced mood disorder; G47.00 Insomnia, unspecified; J45.20 Mild intermittent asthma, uncomplicated; I10 Essential (primary) hypertension; E78.00 Pure hypercholesterolemia, unspecified; R26.89 Other abnormalities of gait and mobility; Z99.89 Dependence on other enabling machines and devices; B20 Human immunodeficiency virus [HIV] disease
CPT/HCPCS: 36415; 80053; 81003; 81015; 85027; 86593; 93005; 93010

== ENCOUNTER 2017-04-01 12:11 | Inpatient (IN) | payer OTHER ==
[2017-04-01 14:14] VITALS: BMI 23.9
[2017-04-01] MEDS ORDERED: NICOTINE POLACRILEX 2 MG GUM BC PRN (17:46)
[2017-04-01] MEDS ORDERED: NICOTINE 10 MG CARTRIDGE (INHALER) IH PRN (17:46)
[2017-04-01] MEDS ORDERED: guaiFENesin/D-METHORPHAN HB 10 ML UNIT-DOSE CUPS PO PRN (17:46)
[2017-04-01] MEDS ORDERED: MAG HYDROX/AL HYDROX/SIMETH 30 ML UNIT-DOSE CUP PO PRN (17:46)
[2017-04-01] MEDS ORDERED: MAGNESIUM HYDROX 2400MG/30ML ORAL SUSPENSION 30 ML CUP PO PRN (17:46)
[2017-04-01] MEDS ORDERED: IBUPROFEN 400 MG TABLET (FP) PO PRN (17:46)
[2017-04-01] MEDS ORDERED: ACETAMINOPHEN 325 MG TABLET (FP) PO PRN (17:46)
[2017-04-01] MEDS ORDERED: P-EPHED 60MG/TRIPROLIDI 2.5MG TABLET PO PRN (17:46)
[2017-04-01] MEDS ORDERED: LOPERAMIDE HCL 2 MG CAPSULE PO PRN (17:46)
[2017-04-01] MEDS ORDERED: MENTHOL/PHENOL 1 EACH UD MM PRN (17:46)
[2017-04-01] MEDS ORDERED: diphenhydrAMINE HCL 50 MG CAPSULE PO PRN (17:46)
[2017-04-01] MEDS ORDERED: MAGNESIUM CITRATE 300 ML BOTTLE PO PRN (17:46)
[2017-04-01] MEDS ORDERED: chlordiazePOXIDE HCL 25 MG CAPSULE PO PRN (17:46)
[2017-04-01] MEDS ORDERED: ALBUTEROL SO4 6.7 GM HFA INHALER IH PRN (17:50)
--- NOTE | 2017-04-01 17:52 | HP ---
CIWA Score - CIWA Score Nausea/Vomitin Muscle Tremors: 5 Anxiety: 4-Mod. Anxious/Guarded Agitation: 4-Moderately Restless Paroxysmal Sweats: 3 Orientation: 0-Oriented Tacttile Disturbances: 0-None Auditory Disturbances: 0-None Visual Disturbances: 0-None Headache: 3-Moderate CIWA-Ar Total Score: 22 Admission ROS S - HPI Chief Complaint: alcohol withdrawal sx Allergies/Adverse Reactions: Allergies Allergy/AdvReac Type Severity Reaction Status Date / Time No Known Drug Allergies Allergy Unknown Verified 04/01/17 16:33 mushroom Allergy Rash Verified 04/01/17 16:33 History of Present Illness: 62 yo f with PMHx chronic alcoholism, crack cocaine dependence, nicotine dependence , HTN, HIV+, Hep c+, asthma, PPD+, arthritis, ambulates with cane admitted for inpatient detoxification from alcohol and cocaine followed by rehab. was sober 7 years 1989. now complaining of alcohol and crack cocaine withdrawal sx. no h/o seizures, no h/o DTs, never intubated Exam Limitations: No Limitations - Ebola screening Have you traveled outside of the country in the last 21 days: No Have you had contact with anyone from an Ebola affected area: No Have you been sick,other than usual withdrawal symptoms: No Do you have a fever: No - Review of Systems Constitutional: Chills, Diaphoresis, Loss of Appetite, Malaise, Night Sweats, Changes in sleep, Weight Stable EENT: reports: Nose Congestion (from cocaine use, sleeps uinder fan) Respiratory: reports: No Symptoms reported Cardiac: reports: No Symptoms Reported GI: reports: Diarrhea, Poor Fluid Intake, Abdominal cramping : reports: No Symptoms Reported Musculoskeletal: reports: Back Pain (arthritis), Joint Pain, Muscle Pain, Joint Stiffness Integumentary: reports: Sweating (from withdrawal) Neuro: reports: Headache, Tremors Endocrine: reports: Excessive Sweating, Flushing Hematology: reports: No Symptoms Reported Psychiatric: reports: Judgement Intact, Mood/Affect Appropiate, Orientated x3, Agitated, Anxious, Depressed Other Systems: Reviewed and Negative Patient History - Patient Medical History Hx Anemia: No Hx Asthma: Yes Hx Chronic Obstructive Pulmonary Disease (COPD): No Hx Cancer: No Hx Cardiac Disorders: No Hx Congestive Heart Failure: No Hx Hypertension: Yes Hx Hypercholesterolemia: Yes (ON LIPITOR) Hx Pacemaker: No HX Cerebrovascular Accident: No Hx Seizures: No Hx Dementia: No Hx Diabetes: No Hx Gastrointestinal Disorders: No Hx Liver Disease: No Hx Genitourinary Disorders: No Hx Sexually Transmitted Disorders: Yes (gus 1994) Hx Renal Disease (ESRD): No Hx Thyroid Disease: No Hx Human Immunodeficiency Virus (HIV): Yes (SINCE 1989;ON MEDS;HX OIs/AIDS.) Hx Hepatitis C: Yes Hx Depression: No Hx Suicide Attempt: No Hx Bipolar Disorder: No Hx Schizophrenia: No Other Medical History: no h/o suicide attempts in past - Patient Surgical History Past Surgical History: Yes Hx Neurologic Surgery: No Hx Cataract Extraction: No Hx Cardiac Surgery: No Hx Lung Surgery: No Hx Breast Surgery: No Hx Breast Biopsy: No Hx Abdominal Surgery: Yes (2001-umbillical hernia) Hx Appendectomy: No Hx Cholecystectomy: No Hx Genitourinary Surgery: No Hx Section: Yes (1981) Hx Orthopedic Surgery: No Hx Hysterectomy: Yes (1999) Anesthesia Reaction: No - PPD History Previous Implant?: Yes Documented Results: Positive w/o proof Results: NEGATIVE CHEST - Reproductive History Last Menstrual Period: 08/17/99 Patient : No - Smoking Cessation Smoking history: Current every day smoker Have you smoked in the past 12 months: Yes Aproximately how many cigarettes per day: 10 Cigars Per Day: 0 Hx Chewing Tobacco Use: No Initiated information on smoking cessation: Yes 'Breaking Loose' booklet given: 04/01/17 - Substance & Tx. History Hx Alcohol Use: Yes Hx Substance Use: Yes Substance Use Type: Alcohol, Cocaine Hx Substance Use Treatment: Yes - Substances Abused Alcohol Route: Oral Frequency: Daily Amount used: wine(3 pints)/beer(2-6pks-16oz cans) Age of first use: 10 Date of Last Use: 04/01/17 Crack Route: Smoking Frequency: Daily Amount used: $30 Age of first use: 10 Date of Last Use: 03/31/17 Family Disease History - Family Disease History Family Disease History: Heart Disease: Mother (HEART ATTACK ), Other: Father ( CIRRHOSIS LIVER, alcoholic) Admission Physical Exam [facility] - Vital Signs Vital Signs: Vital Signs - 24 hr 04/01/17 14:10 Temperature 97 F L Pulse Rate 89 Respiratory 20 Rate Blood Pressure 136/88 - Physical General Appearance: Yes: Disheveled, Moderate Distress, Thin, Irritable, Sweating, Anxious HEENTM: Yes: EOMI, Hearing grossly Normal, Normal ENT Inspection, Normocephalic , Normal Voice, OBEY, Pharynx Normal, Nasal Congestion, Rhinorrhea Respiratory: Yes: Within Normal Limits, Chest Non-Tender, Lungs Clear, Normal Breath Sounds, No Respiratory Distress, No Accessory Muscle Use Neck: Yes: Within Normal Limits, No masses,lesions,Nodules, Trachea in good position Breast: Yes: Breast Exam Deferred Cardiology: Yes: Within Normal Limits, Regular Rhythm, Regular Rate, S1, S2 Abdominal: Yes: Normal Bowel Sounds, Non Tender, Soft, Protuberent, Hernia, Surgical Scar, Other (c section and hernia repair scars) Genitourinary: Yes: Within Normal Limits Back: Yes: Normal Inspection, Decreased Range of Motion, Muscle Spasm, Vertebral Tenderness, Other (ambulates with cane) Extremities: Yes: Within Normal Limits, Normal Capillary Refill, Normal Inspection, Tremors Neurological: Yes: transportation technician II-XII NML intact, Fully Oriented, Alert, Normal Response , Depressed Affect Integumentary: Yes: Normal Color, Warm, Clammy, Diaphoresis Lymphatic: Yes: Within Normal Limits - Addiitonal Findings: 62 yo f with multiple medical comorobidities in alcohol withdrawal - Diagnostic (1) Alcohol dependence with uncomplicated withdrawal Current Visit: Yes Status: Chronic (2) Cocaine dependence, uncomplicated Current Visit: Yes Status: Chronic (3) Insomnia Current Visit: Yes Status: Chronic Qualifiers: Insomnia type: drug-induced Qualified Code(s): F19.982 - Other psychoactive substance use, unspecified with psychoactive substance-induced sleep disorder (4) Acquired immune deficiency syndrome (AIDS) Current Visit: Yes Status: Chronic (5) Asthma Current Visit: No Status: Inactive Qualifiers: Asthma severity: mild intermittent Asthma complication type: uncomplicated Qualified Code(s): J45.20 - Mild intermittent asthma, uncomplicated (6) HTN (hypertension) Current Visit: No Status: Inactive Qualifiers: Hypertension type: essential hypertension Qualified Code(s): I10 - Essential (primary) hypertension (7) Hyperlipidemia Current Visit: No Status: Inactive Qualifiers: Hyperlipidemia type: pure hypercholesterolemia Qualified Code(s): E78.00 - Pure hypercholesterolemia, unspecified; E78.0 - Pure hypercholesterolemia (8) Nicotine dependence Current Visit: Yes Status: Chronic (9) Use of cane as ambulatory aid Current Visit: Yes Status: Chronic Comment: ARTHRITIS OF THE RIGHT LEG (10) Arthritis Current Visit: Yes Status: Acute [facility] Breath Alcohol Content Breath Alcohol Content: 0.114 Urine Pregancy Test - Result Urine Test Results: Negative- NO Line Present Urine Drug Screen - Results Drug Screen Negative: No Urine Drug Screen Results: BZO-Benzodiazepines, TCA-Tricyclic Antidepress
[2017-04-01] MEDS ORDERED: chlordiazePOXIDE HCL 25 MG CAPSULE PO ONE (18:45)
[2017-04-01] MEDS: amLODIPine BESYLATE 10 MG TABLET (FP) PO SCH (19:53)
[2017-04-01] MEDS: ENALAPRIL MALEATE 10 MG TABLET (FP) PO SCH (19:53)
[2017-04-01] MEDS: NICOTINE 14 MG/24 HOURS TOPICAL PATCH TD SCH (19:54)
[2017-04-01] MEDS: THIAMINE HCL 100 MG TABLET (FP) PO SCH (22:21)
[2017-04-01] MEDS: ATORVASTATIN CA 20 MG TABLET (FP) PO SCH (22:22)
[2017-04-01] MEDS: chlordiazePOXIDE HCL 25 MG CAPSULE PO SCH (22:22)
[2017-04-01] MEDS: QUEtiapine FUMARATE 300 MG TABLET PO SCH (22:22)
[2017-04-01 23:31] LABS: URINE APPEARANCE SL CLOUDY; URINE BILIRUBIN NEGATIVE (NEGATIVE); URINE BLOOD TRACE-LYSE (NEGATIVE); URINE COLOR LT. YELLOW; URINE GLUCOSE (UA) NEGATIVE (NEGATIVE); URINE KETONE NEGATIVE (NEGATIVE); URINE NITRITE NEGATIVE (NEGATIVE); URINE PROTEIN NEGATIVE (NEGATIVE); URINE UROBILINOGEN 0.2 mg/dL (0.2-1.0)
[2017-04-01 23:33] LABS: URINE LEUK ESTERASE 3+ (NEGATIVE)
[2017-04-02 01:21] LABS: URINE BACTERIA MODERATE /hpf (NONE SEEN); URINE MUCUS RARE; URINE RBC 5 /hpf (0-3); URINE WBC 7 /hpf (3-5)
[2017-04-02] MEDS: chlordiazePOXIDE HCL 25 MG CAPSULE PO SCH ×4 (06:06→22:20)
--- NOTE | 2017-04-02 09:16 | CONSULT ---
[facility] Psychiatric Consult - Data Date of interview: 04/02/17 Admission source: [facility] Identifying data: This is 62 years old male ambulating with cane, with no psychiatric hospitalization history intoxicated with: Alcohol, Cocaine and Nicotine Substance Abuse History: - Smoking Cessation. Smoking history: Current every day smoker. Have you smoked in the past 12 months: Yes. Aproximately how many cigarettes per day: 10. Cigars Per Day: 0. Hx Chewing Tobacco Use: No. Initiated information on smoking cessation: Yes. 'Breaking Loose' booklet given : 04/01/17. - Substance & Tx. History. Hx Alcohol Use: Yes. Hx Substance Use : Yes. Substance Use Type: Alcohol, Cocaine. Hx Substance Use Treatment: Yes. - Substances Abused. Alcohol. Route: Oral. Frequency: Daily. Amount used: wine(3 pints)/beer(2-6pks-16oz cans). Age of first use: 10. Date of Last Use: 04/01/17. Crack. Route: Smoking. Frequency: Daily. Amount used : $30. Age of first use: 10. Date of Last Use: 03/31/17 Medical History: Arthritis history, AIDS, Asthma, hEPc+, Hyperlipoproteinemia, PPD+ history Psychiatric History: Patient reports history of anxiety and Insomnia, reports taking Seroquel 300mg po qhs Physical/Sexual Abuse/Trauma History: Denies Additional Comment: Seroquel 300mg po qhs Mental Status Exam - Mental Status Exam Alert and Oriented to: Person Cognitive Function: Fair Patient Appearance: Unkempt Mood: Sad Affect: Flat Patient Behavior: Sedated Speech Pattern: Delayed Voice Loudness: Mildly Soft/Quiet Thought Process: Circumstantial Thought Disorder: Being Controlled Hallucinations: Denies Suicidal Ideation: Denies Homicidal Ideation: Denies Insight/Judgement: Fair Sleep: Difficulty falling asleep Appetite: Fair Muscle strength/Tone: Mild Hypotonicity Gait/Station: Shuffling Additional Comments: Seroquel 300mg po qhs Psychiatric Findings - Problem List ([place] 1, 2,3) (1) Alcohol dependence with uncomplicated withdrawal Current Visit: Yes Status: Chronic (2) Cocaine dependence, uncomplicated Current Visit: Yes Status: Chronic (3) Nicotine dependence Current Visit: Yes Status: Chronic (4) Substance induced mood disorder Current Visit: No Status: Chronic (5) Substance-induced sleep disorder Current Visit: No Status: Suspected - Initial Treatment Plan Initial Treatment Plan: Seroquel 300mg po qhs
[2017-04-02 09:59] LABS: MCH 35.1 pg (25.7-33.7); MCHC 33.8 g/dl (32.0-36.0); MEAN CELL VOLUME 103.7 fl (80-96); MEAN PLT VOLUME 8.4 fl (7.5-11.1); PLATELET COUNT 241 K/MM3 (134-434); RDW 13.3 % (11.6-15.6); WHITE BLOOD COUNT 6.4 K/mm3 (4.0-10.0)
[2017-04-02] MEDS: ENALAPRIL MALEATE 10 MG TABLET (FP) PO SCH (10:25)
[2017-04-02] MEDS: PRENATAL VITAMINS W/ FOLIC ACID TABLET (FP) PO SCH (10:25)
[2017-04-02 10:26] LABS: ALBUMIN 3.1 g/dl (3.4-5.0); ALK PHOS 125 U/L (45-117); ANION GAP 8 (8-16); BILIRUBIN,TOTAL 0.4 mg/dL (0.2-1.0); CO2 25 mmol/L (21-32); CREATININE 0.9 mg/dL (0.55-1.02); GLUCOSE,RANDOM 83 mg/dL (74-106); SGOT/AST 168 U/L (15-37); SGPT/ALT 105 U/L (12-78); TOT PROT 8.8 g/dl (6.4-8.2)
[2017-04-02] MEDS: NICOTINE 14 MG/24 HOURS TOPICAL PATCH TD SCH (10:26)
[2017-04-02] MEDS: amLODIPine BESYLATE 10 MG TABLET (FP) PO SCH (10:26)
--- NOTE | 2017-04-02 11:11 | PN ---
[facility] CIWA - CIWA Score Nausea/Vomitin Muscle Tremors: 3 Anxiety: 3 Agitation: 2 Paroxysmal Sweats: No Perspiration Orientation: 0-Oriented Tacttile Disturbances: 1-Very Mild Itch/Numbness Auditory Disturbances: 1-Very Mild Visual Disturbances: 1-Very Mild Sensitivity Headache: 2-Mild CIWA-Ar Total Score: 16 S Progress Note (SOAP) Subjective: ALERT,IRRITABLE,ANXIOUS,INTERRUPTED SLEEP,TREMOR Objective: 04/02/17 11:08 Vital Signs Temperature 97 F L 04/02/17 10:16 Pulse Rate 86 04/02/17 10:16 Respiratory Rate 18 04/02/17 10:16 Blood Pressure 145/95 04/02/17 10:16 O2 Sat by Pulse Oximetry (%) EKG NSR NO CHEST PAIN,NO SOB,NO DIZZINESS Laboratory Last Values WBC 6.4 K/mm3 (4.0-10.0) 04/02/17 06:00 RBC 4.30 M/mm3 (3.60-5.2) 04/02/17 06:00 Hgb 15.1 GM/dL (10.7-15.3) 04/02/17 06:00 Hct 44.6 % (32.4-45.2) 04/02/17 06:00 MCV 103.7 fl (80-96) H 04/02/17 06:00 MCH 35.1 pg (25.7-33.7) H 04/02/17 06:00 MCHC 33.8 g/dl (32.0-36.0) 04/02/17 06:00 RDW 13.3 % (11.6-15.6) 04/02/17 06:00 Plt Count 241 K/MM3 (134-434) 04/02/17 06:00 MPV 8.4 fl (7.5-11.1) 04/02/17 06:00 Sodium 137 mmol/L (136-145) 04/02/17 06:00 Potassium 4.2 mmol/L (3.5-5.1) 04/02/17 06:00 Chloride 104 mmol/L (98-107) 04/02/17 06:00 Carbon Dioxide 25 mmol/L (21-32) 04/02/17 06:00 Anion Gap 8 (8-16) 04/02/17 06:00 BUN 10 mg/dL (7-18) D 04/02/17 06:00 Creatinine 0.9 mg/dL (0.55-1.02) D 04/02/17 06:00 Creat Clearance w eGFR > 60 (>60) 04/02/17 06:00 Random Glucose 83 mg/dL (74-106) 04/02/17 06:00 Calcium 9.0 mg/dL (8.5-10.1) 04/02/17 06:00 Total Bilirubin 0.4 mg/dL (0.2-1.0) D 04/02/17 06:00 AST 168 U/L (15-37) H D 04/02/17 06:00 ALT 105 U/L (12-78) H D 04/02/17 06:00 Alkaline Phosphatase 125 U/L (45-117) H 04/02/17 06:00 Total Protein 8.8 g/dl (6.4-8.2) H 04/02/17 06:00 Albumin 3.1 g/dl (3.4-5.0) L 04/02/17 06:00 Urine Color Lt. yellow 04/01/17 20:56 Urine Appearance Sl cloudy 04/01/17 20:56 Urine pH 6.0 (5.0-8.0) 04/01/17 20:56 Urine Protein Negative (NEGATIVE) 04/01/17 20:56 Urine Glucose (UA) Negative (NEGATIVE) 04/01/17 20:56 Urine Ketones Negative (NEGATIVE) 04/01/17 20:56 Urine Blood Trace-lyse (NEGATIVE) 04/01/17 20:56 Urine Nitrite Negative (NEGATIVE) 04/01/17 20:56 Urine Bilirubin Negative (NEGATIVE) 04/01/17 20:56 Urine Urobilinogen 0.2 mg/dL (0.2-1.0) 04/01/17 20:56 Ur Leukocyte Esterase 3+ (NEGATIVE) H 04/01/17 20:56 Urine RBC 5 /hpf (0-3) 04/01/17 20:56 Urine WBC 7 /hpf (3-5) 04/01/17 20:56 Ur Epithelial Cells Moderate /hpf (FEW) 04/01/17 20:56 Urine Bacteria Moderate /hpf (NONE SEEN) 04/01/17 20:56 Urine Mucus Rare 04/01/17 20:56 RPR Titer Nonreactive (NONREACTIVE) 04/02/17 06:00 Assessment: 04/02/17 11:10 WITHDRAWAL SYMPTOM Plan: CONTINUE DETOX,REPEAT UA
--- NOTE | 2017-04-02 11:19 | PN ---
[facility] Progress Note Note: ADDENDUM D/C TYLENOL DUE TO TRANSAMINASEMIA,REPEAT ALT,AST,INR IN AM,REPEAT UA TODAY
--- NOTE | 2017-04-02 15:01 | EKG ---
Test Reason : Blood Pressure : / mmHG Vent. Rate : 089 BPM Atrial Rate : 089 BPM P-R Int : 200 ms QRS Dur : 086 ms QT Int : 394 ms P-R-T Axes : 073 019 067 degrees QTc Int : 479 ms NORMAL SINUS RHYTHM SEPTAL INFARCT , AGE UNDETERMINED ABNORMAL ECG WHEN COMPARED WITH ECG OF 02-FEB-2017 18:05, NO SIGNIFICANT CHANGE WAS FOUND Confirmed by CHEYENNE HERNANDEZ MD ([id number]) on 04/02/2017 3:01:01 PM Referred By: Dontae Isaacs Confirmed By:CHEYENNE HERNANDEZ MD
[2017-04-02] MEDS ORDERED: QUEtiapine FUMARATE 300 MG TABLET PO SCH (22:00)
[2017-04-02] MEDS: THIAMINE HCL 100 MG TABLET (FP) PO SCH (22:20)
[2017-04-02] MEDS: ATORVASTATIN CA 20 MG TABLET (FP) PO SCH (22:20)
[2017-04-02] MEDS: QUEtiapine FUMARATE 300 MG TABLET PO SCH (22:20)
[2017-04-03] MEDS: chlordiazePOXIDE HCL 25 MG CAPSULE PO SCH ×3 (05:10→18:28)
--- NOTE | 2017-04-03 09:40 | PN ---
[facility] CIWA - CIWA Score Nausea/Vomitin Muscle Tremors: 3 Anxiety: 2 Agitation: 2 Paroxysmal Sweats: 1-Minimal Palms Moist Orientation: 0-Oriented Tacttile Disturbances: 1-Very Mild Itch/Numbness Auditory Disturbances: 1-Very Mild Visual Disturbances: 1-Very Mild Sensitivity Headache: 2-Mild CIWA-Ar Total Score: 16 S Progress Note (SOAP) Subjective: ALERT,IRRITABLE,ANXIOUS,INTERRUPTED SLEEP,TREMOR Objective: 04/03/17 09:37 Vital Signs Temperature 97.5 F L 04/03/17 06:00 Pulse Rate 76 04/03/17 06:00 Respiratory Rate 18 04/03/17 06:00 Blood Pressure 134/93 04/03/17 06:00 O2 Sat by Pulse Oximetry (%) EKG NSR STIN V2 NO CHEST PAIN,NO SOB,NO DIZZINESS Laboratory Last Values WBC 6.4 K/mm3 (4.0-10.0) 04/02/17 06:00 RBC 4.30 M/mm3 (3.60-5.2) 04/02/17 06:00 Hgb 15.1 GM/dL (10.7-15.3) 04/02/17 06:00 Hct 44.6 % (32.4-45.2) 04/02/17 06:00 MCV 103.7 fl (80-96) H 04/02/17 06:00 MCH 35.1 pg (25.7-33.7) H 04/02/17 06:00 MCHC 33.8 g/dl (32.0-36.0) 04/02/17 06:00 RDW 13.3 % (11.6-15.6) 04/02/17 06:00 Plt Count 241 K/MM3 (134-434) 04/02/17 06:00 MPV 8.4 fl (7.5-11.1) 04/02/17 06:00 Sodium 137 mmol/L (136-145) 04/02/17 06:00 Potassium 4.2 mmol/L (3.5-5.1) 04/02/17 06:00 Chloride 104 mmol/L (98-107) 04/02/17 06:00 Carbon Dioxide 25 mmol/L (21-32) 04/02/17 06:00 Anion Gap 8 (8-16) 04/02/17 06:00 BUN 10 mg/dL (7-18) D 04/02/17 06:00 Creatinine 0.9 mg/dL (0.55-1.02) D 04/02/17 06:00 Creat Clearance w eGFR > 60 (>60) 04/02/17 06:00 Random Glucose 83 mg/dL (74-106) 04/02/17 06:00 Calcium 9.0 mg/dL (8.5-10.1) 04/02/17 06:00 Total Bilirubin 0.4 mg/dL (0.2-1.0) D 04/02/17 06:00 AST 168 U/L (15-37) H D 04/02/17 06:00 ALT 105 U/L (12-78) H D 04/02/17 06:00 Alkaline Phosphatase 125 U/L (45-117) H 04/02/17 06:00 Total Protein 8.8 g/dl (6.4-8.2) H 04/02/17 06:00 Albumin 3.1 g/dl (3.4-5.0) L 04/02/17 06:00 Urine Color Lt. yellow 04/01/17 20:56 Urine Appearance Sl cloudy 04/01/17 20:56 Urine pH 6.0 (5.0-8.0) 04/01/17 20:56 Ur Specific [place] 1.015 (1.005-1.025) 04/01/17 20:56 Urine Protein Negative (NEGATIVE) 04/01/17 20:56 Urine Glucose (UA) Negative (NEGATIVE) 04/01/17 20:56 Urine Ketones Negative (NEGATIVE) 04/01/17 20:56 Urine Blood Trace-lyse (NEGATIVE) 04/01/17 20:56 Urine Nitrite Negative (NEGATIVE) 04/01/17 20:56 Urine Bilirubin Negative (NEGATIVE) 04/01/17 20:56 Urine Urobilinogen 0.2 mg/dL (0.2-1.0) 04/01/17 20:56 Ur Leukocyte Esterase 3+ (NEGATIVE) H 04/01/17 20:56 Urine RBC 5 /hpf (0-3) 04/01/17 20:56 Urine WBC 7 /hpf (3-5) 04/01/17 20:56 Ur Epithelial Cells Moderate /hpf (FEW) 04/01/17 20:56 Urine Bacteria Moderate /hpf (NONE SEEN) 04/01/17 20:56 Urine Mucus Rare 04/01/17 20:56 RPR Titer Nonreactive (NONREACTIVE) 04/02/17 06:00 Assessment: 04/03/17 09:39 WITHDRAWAL SYMPTOM Plan: CONTINUE DETOX
[2017-04-03 10:22] LABS: URINE APPEARANCE CLOUDY; URINE BILIRUBIN NEGATIVE (NEGATIVE); URINE BLOOD 1+ (NEGATIVE); URINE COLOR YELLOW; URINE GLUCOSE (UA) NEGATIVE (NEGATIVE); URINE KETONE NEGATIVE (NEGATIVE); URINE NITRITE NEGATIVE (NEGATIVE); URINE PROTEIN NEGATIVE (NEGATIVE); URINE UROBILINOGEN NEGATIVE mg/dL (0.2-1.0)
[2017-04-03 10:29] LABS: SGOT/AST 91 U/L (15-37); SGPT/ALT 82 U/L (12-78)
[2017-04-03 10:31] LABS: INR 0.99 (0.82-1.09)
[2017-04-03 10:31] LABS: URINE LEUK ESTERASE 3+ (NEGATIVE)
[2017-04-03 10:59] LABS: PROTHROMBIN TIME (PATIENT) 10.9 SEC (9.98-11.88)
[2017-04-03] MEDS: PRENATAL VITAMINS W/ FOLIC ACID TABLET (FP) PO SCH (11:03)
[2017-04-03] MEDS: amLODIPine BESYLATE 10 MG TABLET (FP) PO SCH (11:03)
[2017-04-03] MEDS: ENALAPRIL MALEATE 10 MG TABLET (FP) PO SCH (11:03)
[2017-04-03] MEDS: NICOTINE 14 MG/24 HOURS TOPICAL PATCH TD SCH (11:04)
[2017-04-03 11:05] LABS: URINE RBC 37 /hpf (0-3); URINE WBC 80 /hpf (3-5)
[2017-04-03] MEDS: THIAMINE HCL 100 MG TABLET (FP) PO SCH (22:07)
[2017-04-03] MEDS: chlordiazePOXIDE 5 MG CAPSULE PO SCH (22:07)
[2017-04-03] MEDS: QUEtiapine FUMARATE 300 MG TABLET PO SCH (22:07)
[2017-04-03] MEDS: ATORVASTATIN CA 20 MG TABLET (FP) PO SCH (22:07)
[2017-04-04] MEDS: chlordiazePOXIDE 5 MG CAPSULE PO SCH ×3 (05:50→17:24)
[2017-04-04] MEDS: PRENATAL VITAMINS W/ FOLIC ACID TABLET (FP) PO SCH (10:31)
[2017-04-04] MEDS: amLODIPine BESYLATE 10 MG TABLET (FP) PO SCH (10:31)
[2017-04-04] MEDS: ENALAPRIL MALEATE 10 MG TABLET (FP) PO SCH (10:31)
[2017-04-04] MEDS: NICOTINE 14 MG/24 HOURS TOPICAL PATCH TD SCH (10:32)
--- NOTE | 2017-04-04 14:21 | PN ---
S Progress Note (SOAP) Subjective: alert,irritable,anxious,interrupted sleep Objective: 04/04/17 14:19 Vital Signs Temperature 97.7 F 04/04/17 09:59 Pulse Rate 88 04/04/17 09:59 Respiratory Rate 16 04/04/17 09:59 Blood Pressure 120/58 04/04/17 09:59 O2 Sat by Pulse Oximetry (%) Laboratory Results - last 24 hr 04/03/17 08:00 Urine Color Yellow Urine Appearance Cloudy Urine pH 6.0 Ur Specific [place] 1.010 Urine Protein Negative Urine Glucose (UA) Negative Urine Ketones Negative Urine Blood 1+ H Urine Nitrite Negative Urine Bilirubin Negative Urine Urobilinogen Negative Ur Leukocyte Esterase 3+ H Urine RBC 37 Urine WBC 80 Ur Epithelial Cells Many Assessment: 04/04/17 14:20 withdrawal symptom Plan: continue detox,bactrim ds 1 tab po bid for 7 days for uti
--- NOTE | 2017-04-04 14:25 | PN ---
S Progress Note (SOAP) Subjective: alert,irritable,interrupted sleep Objective: 04/04/17 14:25 Vital Signs Temperature 97.7 F 04/04/17 09:59 Pulse Rate 88 04/04/17 09:59 Respiratory Rate 16 04/04/17 09:59 Blood Pressure 120/58 04/04/17 09:59 O2 Sat by Pulse Oximetry (%) Assessment: 04/04/17 14:25 withdrawal symptom Laboratory Last Values WBC 6.4 K/mm3 (4.0-10.0) 04/02/17 06:00 RBC 4.30 M/mm3 (3.60-5.2) 04/02/17 06:00 Hgb 15.1 GM/dL (10.7-15.3) 04/02/17 06:00 Hct 44.6 % (32.4-45.2) 04/02/17 06:00 MCV 103.7 fl (80-96) H 04/02/17 06:00 MCH 35.1 pg (25.7-33.7) H 04/02/17 06:00 MCHC 33.8 g/dl (32.0-36.0) 04/02/17 06:00 RDW 13.3 % (11.6-15.6) 04/02/17 06:00 Plt Count 241 K/MM3 (134-434) 04/02/17 06:00 MPV 8.4 fl (7.5-11.1) 04/02/17 06:00 INR 0.99 (0.82-1.09) 04/03/17 07:00 Sodium 137 mmol/L (136-145) 04/02/17 06:00 Potassium 4.2 mmol/L (3.5-5.1) 04/02/17 06:00 Chloride 104 mmol/L (98-107) 04/02/17 06:00 Carbon Dioxide 25 mmol/L (21-32) 04/02/17 06:00 Anion Gap 8 (8-16) 04/02/17 06:00 BUN 10 mg/dL (7-18) D 04/02/17 06:00 Creatinine 0.9 mg/dL (0.55-1.02) D 04/02/17 06:00 Creat Clearance w eGFR > 60 (>60) 04/02/17 06:00 Random Glucose 83 mg/dL (74-106) 04/02/17 06:00 Calcium 9.0 mg/dL (8.5-10.1) 04/02/17 06:00 Total Bilirubin 0.4 mg/dL (0.2-1.0) D 04/02/17 06:00 AST 91 U/L (15-37) H D 04/03/17 07:00 ALT 82 U/L (12-78) H D 04/03/17 07:00 Alkaline Phosphatase 125 U/L (45-117) H 04/02/17 06:00 Total Protein 8.8 g/dl (6.4-8.2) H 04/02/17 06:00 Albumin 3.1 g/dl (3.4-5.0) L 04/02/17 06:00 Urine Color Yellow 04/03/17 08:00 Urine Appearance Cloudy 04/03/17 08:00 Urine pH 6.0 (5.0-8.0) 04/03/17 08:00 Ur Specific [place] 1.010 (1.005-1.025) 04/03/17 08:00 Urine Protein Negative (NEGATIVE) 04/03/17 08:00 Urine Glucose (UA) Negative (NEGATIVE) 04/03/17 08:00 Urine Ketones Negative (NEGATIVE) 04/03/17 08:00 Urine Blood 1+ (NEGATIVE) H 04/03/17 08:00 Urine Nitrite Negative (NEGATIVE) 04/03/17 08:00 Urine Bilirubin Negative (NEGATIVE) 04/03/17 08:00 Urine Urobilinogen Negative mg/dL (0.2-1.0) 04/03/17 08:00 Ur Leukocyte Esterase 3+ (NEGATIVE) H 04/03/17 08:00 Urine RBC 37 /hpf (0-3) 04/03/17 08:00 Urine WBC 80 /hpf (3-5) 04/03/17 08:00 Ur Epithelial Cells Many /hpf (FEW) 04/03/17 08:00 Urine Bacteria Moderate /hpf (NONE SEEN) 04/01/17 20:56 Urine Mucus Rare 04/01/17 20:56 RPR Titer Nonreactive (NONREACTIVE) 04/02/17 06:00 Plan: CONTINUE DETOX,ON BACTRIM DS 1 TAB PO BID FOR UTI
[2017-04-04] MEDS: ATORVASTATIN CA 20 MG TABLET (FP) PO SCH (22:27)
[2017-04-04] MEDS: SULFAMETHOXAZOLE/TRIMETHOPRIM 800MG/160MG D.S. TABLET PO SCH (22:27)
[2017-04-04] MEDS: chlordiazePOXIDE HCL 10 MG CAPSULE PO SCH (22:27)
[2017-04-04] MEDS: QUEtiapine FUMARATE 300 MG TABLET PO SCH (22:28)
[2017-04-04] MEDS: THIAMINE HCL 100 MG TABLET (FP) PO SCH (22:28)
[2017-04-05] MEDS: chlordiazePOXIDE HCL 10 MG CAPSULE PO SCH ×2 (06:34→10:11)
[2017-04-05] MEDS: PRENATAL VITAMINS W/ FOLIC ACID TABLET (FP) PO SCH (10:10)
[2017-04-05] MEDS: amLODIPine BESYLATE 10 MG TABLET (FP) PO SCH (10:11)
[2017-04-05] MEDS: SULFAMETHOXAZOLE/TRIMETHOPRIM 800MG/160MG D.S. TABLET PO SCH (10:11)
[2017-04-05] MEDS: ENALAPRIL MALEATE 10 MG TABLET (FP) PO SCH (10:11)
[2017-04-05] MEDS: NICOTINE 14 MG/24 HOURS TOPICAL PATCH TD SCH (10:12)
--- NOTE | 2017-04-05 10:15 | DS ---
[facility] Detox Discharge Summary Admission Date: 04/01/17 Discharge Date: 04/05/17 - History Present History: Alcohol Dependence, Cocaine Dependence Additional Comments: FOLLOW UP WITH REVELATION Pertinent Past History: AIDS ASTHMA HYPERTENSION HYPERLIPIDEMIA NICOTINE DEPENDENCE INSOMNIA ARTHRITIS USE CANE FOR AMBULATORY AID INSMNIA ARTHRITIS UTI - Physical Exam Results Vital Signs: Vital Signs Temperature 97.7 F 04/05/17 06:29 Pulse Rate 81 04/05/17 06:29 Respiratory Rate 18 04/05/17 06:29 Blood Pressure 120/73 04/05/17 06:29 O2 Sat by Pulse Oximetry (%) Pertinent Admission Physical Exam Findings: WITHDRAWAL SYMPTOM - Treatment Hospital Course: Detox Protocol Followed, Detoxed Safely, Responded well, Discharged Condition Good, Rehab Referral Accepted Patient has Accepted a Rehab Referral to: [facility] - Medication Discharge Medications: Ambulatory Orders Albuterol Sulfate Inhaler - [Ventolin HFA Inhaler -] 2 inh IH Q4H PRN #1 inhaler 04/18/16 Abacavir/Dolutegravir/Lamivudi [Triumeq Tablet] 1 each PO DAILY 07/28/16 Amlodipine Besylate [Norvasc -] 10 mg PO DAILY 07/28/16 Atorvastatin Ca [Lipitor] 20 mg PO HS 07/28/16 Enalapril Maleate [Vasotec -] 10 mg PO DAILY 11/20/16 Quetiapine Fumarate [Seroquel -] 300 mg PO HS 02/02/17 Quetiapine Fumarate [Seroquel -] 300 mg PO HS #30 tab 04/02/17 - Diagnosis (1) Alcohol dependence with uncomplicated withdrawal Current Visit: Yes Status: Chronic (2) UTI (urinary tract infection) Current Visit: Yes Status: Acute (3) Arthritis Current Visit: Yes Status: Acute (4) Acquired immune deficiency syndrome (AIDS) Current Visit: Yes Status: Chronic (5) Cocaine dependence, uncomplicated Current Visit: Yes Status: Chronic (6) Insomnia Current Visit: Yes Status: Chronic Qualifiers: Insomnia type: drug-induced Qualified Code(s): F19.982 - Other psychoactive substance use, unspecified with psychoactive substance-induced sleep disorder (7) Nicotine dependence Current Visit: Yes Status: Chronic (8) Use of cane as ambulatory aid Current Visit: Yes Status: Chronic - AMA Did Patient Leave Against Medical Advice: No
[2017-04-05 10:50] VITALS: BP 115/64; PULSE 99; TEMP 96.4
== END 2017-04-05 11:39 | disposition home or self-care (01) | DRG 774 ==
LOC: YASAS 12:11 → Y6N 17:22
PROVIDERS: ADMIT Internal Medicine; ATTEND Internal Medicine Addiction Medicine
PROC: HZ2ZZZZ Detoxification Services for Substance Abuse Treatment (ICD-10-PCS; principal; 2017-04-01)
DX: F10.230 Alcohol dependence with withdrawal, uncomplicated (principal); F14.20 Cocaine dependence, uncomplicated; F17.210 Nicotine dependence, cigarettes, uncomplicated; F19.24 Other psychoactive substance dependence with psychoactive substance-induced mood disorder; F19.282 Other psychoactive substance dependence with psychoactive substance-induced sleep disorder; B20 Human immunodeficiency virus [HIV] disease; B18.2 Chronic viral hepatitis C; N39.0 Urinary tract infection, site not specified; M19.90 Unspecified osteoarthritis, unspecified site; E78.00 Pure hypercholesterolemia, unspecified; I10 Essential (primary) hypertension; J45.909 Unspecified asthma, uncomplicated; Z91.018 Allergy to other foods; R26.2 Difficulty in walking, not elsewhere classified; Z99.89 Dependence on other enabling machines and devices; Z87.42 Personal history of other diseases of the female genital tract
CPT/HCPCS: 36415; 80053; 81003; 81015; 84450; 84460; 85027; 85610; 86593; 93005; 93010

== ENCOUNTER 2017-04-05 12:50 | Inpatient (IN) | payer OTHER ==
--- NOTE | 2017-04-05 13:51 | HP ---
[facility] Rehab Assess/Revision - Admission History Admitted to Rehab from: [facility] [place] Date of Admission to Rehab: 04/05/17 - Vital signs Vital Signs: Vital Signs Period Temp Pulse Resp BP Sys/Matson Pulse Ox Last 24 Hr 97.6 F 86 19 111/70 - Findings Detox History & Physical reviewed: Yes Concur with findings: Yes Comments/Additional Findings: FOR REHAB PROTOCOL
[2017-04-05] MEDS ORDERED: guaiFENesin/D-METHORPHAN HB 10 ML UNIT-DOSE CUPS PO PRN (13:52)
[2017-04-05] MEDS ORDERED: MAGNESIUM CITRATE 300 ML BOTTLE PO PRN (13:52)
[2017-04-05] MEDS ORDERED: MAGNESIUM HYDROX 2400MG/30ML ORAL SUSPENSION 30 ML CUP PO PRN (13:52)
[2017-04-05] MEDS ORDERED: P-EPHED 60MG/TRIPROLIDI 2.5MG TABLET PO PRN (13:52)
[2017-04-05] MEDS ORDERED: MAG HYDROX/AL HYDROX/SIMETH 30 ML UNIT-DOSE CUP PO PRN (13:52)
[2017-04-05] MEDS ORDERED: LOPERAMIDE HCL 2 MG CAPSULE PO PRN (13:52)
[2017-04-05] MEDS ORDERED: ACETAMINOPHEN 325 MG TABLET (FP) PO PRN (13:52)
[2017-04-05] MEDS ORDERED: diphenhydrAMINE HCL 50 MG CAPSULE PO PRN (13:52)
[2017-04-05] MEDS ORDERED: hydrOXYzine PAMOATE 25 MG CAPSULE (FP) PO PRN (13:52)
[2017-04-05] MEDS ORDERED: MENTHOL/PHENOL 1 EACH UD MM PRN (13:52)
[2017-04-05] MEDS ORDERED: ALBUTEROL SO4 6.7 GM HFA INHALER IH PRN (13:54)
[2017-04-05] MEDS: NICOTINE 21 MG/24 HOURS TOPICAL PATCH TD SCH (15:14)
[2017-04-05] MEDS: ATORVASTATIN CA 20 MG TABLET (FP) PO SCH (21:39)
[2017-04-05] MEDS: THIAMINE HCL 100 MG TABLET (FP) PO SCH (21:39)
[2017-04-05] MEDS: SULFAMETHOXAZOLE/TRIMETHOPRIM 800MG/160MG D.S. TABLET PO SCH (21:39)
[2017-04-05] MEDS: QUEtiapine FUMARATE 300 MG TABLET PO SCH (21:39)
[2017-04-06] MEDS: PRENATAL VITAMINS W/ FOLIC ACID TABLET (FP) PO SCH (10:31)
[2017-04-06] MEDS: NICOTINE 21 MG/24 HOURS TOPICAL PATCH TD SCH (10:31)
[2017-04-06] MEDS: ENALAPRIL MALEATE 10 MG TABLET (FP) PO SCH (10:31)
[2017-04-06] MEDS: SULFAMETHOXAZOLE/TRIMETHOPRIM 800MG/160MG D.S. TABLET PO SCH ×2 (10:31→21:49)
[2017-04-06] MEDS: amLODIPine BESYLATE 10 MG TABLET (FP) PO SCH (10:32)
[2017-04-06] MEDS: ATORVASTATIN CA 20 MG TABLET (FP) PO SCH (21:49)
[2017-04-06] MEDS: QUEtiapine FUMARATE 300 MG TABLET PO SCH (21:49)
[2017-04-06] MEDS: THIAMINE HCL 100 MG TABLET (FP) PO SCH (21:49)
[2017-04-07] MEDS: SULFAMETHOXAZOLE/TRIMETHOPRIM 800MG/160MG D.S. TABLET PO SCH ×2 (10:12→21:20)
[2017-04-07] MEDS: amLODIPine BESYLATE 10 MG TABLET (FP) PO SCH (10:12)
[2017-04-07] MEDS: ENALAPRIL MALEATE 10 MG TABLET (FP) PO SCH (10:12)
[2017-04-07] MEDS: IBUPROFEN 400 MG TABLET (FP) PO PRN ×2 (10:13→22:10)
[2017-04-07] MEDS: PRENATAL VITAMINS W/ FOLIC ACID TABLET (FP) PO SCH (10:18)
[2017-04-07] MEDS: NICOTINE 21 MG/24 HOURS TOPICAL PATCH TD SCH (10:18)
--- NOTE | 2017-04-07 10:30 | HP ---
Psychiatrist Admission - Data Date of interview: 04/07/17 Admission source: [facility]N Identifying data: This is the forth inpatient rehabilitation admission for this 62 year old single mother of one, residing in [facility] and supported on [facility] funds. Medical History: HIV+, asthma, HTN, HEP C, arthritis, high cholesterol, hx of umbilical hernia last 2001, complete tx of syphilis 1994, c/s last 1981. Smokes cigarettes 1/2 PPD. Psychiatric History: Patient reports no history of psychiatric hospitalizations , states diagnosed with MDD and prescribed Seroqule 300 mg po hs, reports she sees the psychiatrist at [facility] [place]. Denies history of suicdal attempts. She was seen by while in detox and coninue medication. Reports she does not feel well, has a bodyaches. Physical/Sexual Abuse/Trauma History: PAtient denies history of abuse. Vital Signs: Vital Signs - 24 hr 04/07/17 04/07/17 04/07/17 00:30 03:30 07:05 Temperature 98 F Pulse Rate 92 H Respiratory 20 20 20 Rate Blood Pressure 117/88 04/07/17 09:42 Temperature Pulse Rate 89 Respiratory 18 Rate Blood Pressure 123/56 Allergies/Adverse Reactions: Allergies Allergy/AdvReac Type Severity Reaction Status Date / Time No Known Drug Allergies Allergy Unknown Verified 04/01/17 16:33 mushroom Allergy Rash Verified 04/01/17 16:33 Date of last physical exam: 04/01/17 Concur with the findings of this exam: Yes - Substance Abuse/Tx History Hx Alcohol Use: Yes (first drink at age 89, daily 16 oz beer ) Hx Substance Use: Yes Substance Use Type: Cocaine (first use at age of 25, uses 3-5 times a week for $ 50) Hx Substance Use Treatment: Yes ([facility]E) - Admission Criteria Previous failed treatment: Yes Poor recovery environment: Yes Comorbidities: Yes Lacks judgement: Yes Mental Status Exam - Mental Status Exam Alert and Oriented to: Time, Place, Person Cognitive Function: Grossly Intact Patient Appearance: Unkempt (looks older her stated age.) Mood: Depressed, Sad Affect: Mood Congruent, Constricted Patient Behavior: Appropriate, Cooperative Speech Pattern: Clear, Appropriate Voice Loudness: Mildly Soft/Quiet Thought Process: Goal Oriented Thought Disorder: Not Present Hallucinations: Denies Suicidal Ideation: Denies Homicidal Ideation: Denies Insight/Judgement: Fair Sleep: Fair Appetite: Fair Muscle strength/Tone: Normal Gait/Station: Other (walks with cane) Psychiatric Findings - Problem List ([place] 1, 2,3) (1) Nicotine dependence Current Visit: No Status: Chronic (2) Substance induced mood disorder Current Visit: No Status: Chronic (3) Alcohol dependence Current Visit: Yes Status: Acute (4) Cocaine dependence Current Visit: Yes Status: Acute - Initial Treatment Plan Initial Treatment Plan: will continue Seroquel, monitor progress as needed.
[2017-04-07] MEDS: THIAMINE HCL 100 MG TABLET (FP) PO SCH (21:20)
[2017-04-07] MEDS: QUEtiapine FUMARATE 300 MG TABLET PO SCH (21:20)
[2017-04-07] MEDS: ATORVASTATIN CA 20 MG TABLET (FP) PO SCH (21:21)
[2017-04-08] MEDS: NICOTINE 21 MG/24 HOURS TOPICAL PATCH TD SCH (10:07)
[2017-04-08] MEDS: PRENATAL VITAMINS W/ FOLIC ACID TABLET (FP) PO SCH (10:07)
[2017-04-08] MEDS: amLODIPine BESYLATE 10 MG TABLET (FP) PO SCH (10:08)
[2017-04-08] MEDS: SULFAMETHOXAZOLE/TRIMETHOPRIM 800MG/160MG D.S. TABLET PO SCH ×2 (10:08→21:47)
[2017-04-08] MEDS: ENALAPRIL MALEATE 10 MG TABLET (FP) PO SCH (10:08)
[2017-04-08] MEDS: IBUPROFEN 400 MG TABLET (FP) PO PRN (21:46)
[2017-04-08] MEDS: THIAMINE HCL 100 MG TABLET (FP) PO SCH (21:47)
[2017-04-08] MEDS: ATORVASTATIN CA 20 MG TABLET (FP) PO SCH (21:47)
[2017-04-08] MEDS: QUEtiapine FUMARATE 300 MG TABLET PO SCH (21:47)
[2017-04-09] MEDS: SULFAMETHOXAZOLE/TRIMETHOPRIM 800MG/160MG D.S. TABLET PO SCH ×2 (10:07→21:57)
[2017-04-09] MEDS: PRENATAL VITAMINS W/ FOLIC ACID TABLET (FP) PO SCH (10:07)
[2017-04-09] MEDS: ENALAPRIL MALEATE 10 MG TABLET (FP) PO SCH (10:07)
[2017-04-09] MEDS: NICOTINE 21 MG/24 HOURS TOPICAL PATCH TD SCH (10:08)
[2017-04-09] MEDS: amLODIPine BESYLATE 10 MG TABLET (FP) PO SCH (10:08)
[2017-04-09] MEDS: LIDOCAINE 5% TOPICAL PATCH TP SCH (13:47)
[2017-04-09] MEDS: ATORVASTATIN CA 20 MG TABLET (FP) PO SCH (21:57)
[2017-04-09] MEDS: THIAMINE HCL 100 MG TABLET (FP) PO SCH (21:57)
[2017-04-09] MEDS: QUEtiapine FUMARATE 300 MG TABLET PO SCH (21:57)
[2017-04-09] MEDS: IBUPROFEN 400 MG TABLET (FP) PO PRN (21:58)
[2017-04-09] MEDS: LIDOCAINE PATCH REMOVAL MC SCH (22:16)
[2017-04-10] MEDS: ENALAPRIL MALEATE 10 MG TABLET (FP) PO SCH (10:05)
[2017-04-10] MEDS: SULFAMETHOXAZOLE/TRIMETHOPRIM 800MG/160MG D.S. TABLET PO SCH ×2 (10:05→21:23)
[2017-04-10] MEDS: amLODIPine BESYLATE 10 MG TABLET (FP) PO SCH (10:05)
[2017-04-10] MEDS: PRENATAL VITAMINS W/ FOLIC ACID TABLET (FP) PO SCH (10:05)
[2017-04-10] MEDS: LIDOCAINE 5% TOPICAL PATCH TP SCH (10:06)
[2017-04-10] MEDS: NICOTINE 21 MG/24 HOURS TOPICAL PATCH TD SCH (10:06)
[2017-04-10] MEDS: IBUPROFEN 400 MG TABLET (FP) PO PRN (21:23)
[2017-04-10] MEDS: THIAMINE HCL 100 MG TABLET (FP) PO SCH (21:23)
[2017-04-10] MEDS: QUEtiapine FUMARATE 300 MG TABLET PO SCH (21:23)
[2017-04-10] MEDS: ATORVASTATIN CA 20 MG TABLET (FP) PO SCH (21:23)
[2017-04-10] MEDS: LIDOCAINE PATCH REMOVAL MC SCH (22:21)
[2017-04-11] MEDS: LIDOCAINE 5% TOPICAL PATCH TP SCH (09:55)
[2017-04-11] MEDS: SULFAMETHOXAZOLE/TRIMETHOPRIM 800MG/160MG D.S. TABLET PO SCH ×2 (09:55→21:31)
[2017-04-11] MEDS: PRENATAL VITAMINS W/ FOLIC ACID TABLET (FP) PO SCH (09:55)
[2017-04-11] MEDS: ENALAPRIL MALEATE 10 MG TABLET (FP) PO SCH (09:55)
[2017-04-11] MEDS: amLODIPine BESYLATE 10 MG TABLET (FP) PO SCH (09:55)
[2017-04-11] MEDS: NICOTINE 21 MG/24 HOURS TOPICAL PATCH TD SCH (09:55)
[2017-04-11] MEDS: QUEtiapine FUMARATE 300 MG TABLET PO SCH (21:31)
[2017-04-11] MEDS: ATORVASTATIN CA 20 MG TABLET (FP) PO SCH (21:31)
[2017-04-11] MEDS: THIAMINE HCL 100 MG TABLET (FP) PO SCH (21:31)
[2017-04-11] MEDS: IBUPROFEN 400 MG TABLET (FP) PO PRN (21:33)
[2017-04-11] MEDS: LIDOCAINE PATCH REMOVAL MC SCH (23:10)
[2017-04-12] MEDS: amLODIPine BESYLATE 10 MG TABLET (FP) PO SCH (09:52)
[2017-04-12] MEDS: ENALAPRIL MALEATE 10 MG TABLET (FP) PO SCH (09:52)
[2017-04-12] MEDS: LIDOCAINE 5% TOPICAL PATCH TP SCH (09:52)
[2017-04-12] MEDS: NICOTINE 21 MG/24 HOURS TOPICAL PATCH TD SCH (09:52)
[2017-04-12] MEDS: PRENATAL VITAMINS W/ FOLIC ACID TABLET (FP) PO SCH (09:52)
[2017-04-12] MEDS: SULFAMETHOXAZOLE/TRIMETHOPRIM 800MG/160MG D.S. TABLET PO SCH ×2 (09:52→21:30)
[2017-04-12] MEDS: QUEtiapine FUMARATE 300 MG TABLET PO SCH (21:30)
[2017-04-12] MEDS: ATORVASTATIN CA 20 MG TABLET (FP) PO SCH (21:30)
[2017-04-12] MEDS: THIAMINE HCL 100 MG TABLET (FP) PO SCH (21:30)
[2017-04-12] MEDS: LIDOCAINE PATCH REMOVAL MC SCH (21:31)
[2017-04-13 07:06] VITALS: TEMP 98.1
[2017-04-13] MEDS: ENALAPRIL MALEATE 10 MG TABLET (FP) PO SCH (10:00)
[2017-04-13] MEDS: PRENATAL VITAMINS W/ FOLIC ACID TABLET (FP) PO SCH (10:00)
[2017-04-13] MEDS: SULFAMETHOXAZOLE/TRIMETHOPRIM 800MG/160MG D.S. TABLET PO SCH (10:00)
[2017-04-13] MEDS: LIDOCAINE 5% TOPICAL PATCH TP SCH (10:00)
[2017-04-13] MEDS: amLODIPine BESYLATE 10 MG TABLET (FP) PO SCH (10:00)
[2017-04-13] MEDS: NICOTINE 21 MG/24 HOURS TOPICAL PATCH TD SCH (10:03)
--- NOTE | 2017-04-13 10:20 | PN ---
Psychiatric Progress Note Vital Signs: Vital Signs Period Temp Pulse Resp BP Sys/Matson Pulse Ox Last 24 Hr 98.1 F 89 18-18 128/87 Date of Session: 04/13/17 Chief Complaint:: dishcrage visit HPI: Patient addressing alcohol, cocaine, nicotine dependence comorbid substance induced mood disorder. Current Medications: Active Medications Generic Name Dose Route Start Last Admin Trade Name Freq PRN Reason Stop Dose Admin Acetaminophen 650 mg 04/05/17 13:52 04/07/17 12:44 Tylenol - PO 650 mg Q4H PRN Administration FEVER OR PAIN Al Hydroxide/Mg Hydroxide 30 ml 04/05/17 13:52 Mylanta Oral Suspension - PO Q6H PRN DYSPEPSIA Albuterol Sulfate 2 puff 04/05/17 13:54 Ventolin Hfa Inhaler - IH Q4H PRN ASTHMA Amlodipine Besylate 10 mg 04/06/17 10:00 04/13/17 10:00 Norvasc - PO 10 mg DAILY MICHAEL Administration Atorvastatin Calcium 20 mg 04/05/17 22:00 04/12/17 21:30 Lipitor - PO 20 mg HS MICHAEL Administration Diphenhydramine HCl 50 mg 04/05/17 13:52 04/12/17 21:30 Benadryl - PO 50 mg HSMR1 PRN Administration FOR ITCHING Enalapril Maleate 10 mg 04/06/17 10:00 04/13/17 10:00 Vasotec - PO 10 mg DAILY MICHAEL Administration Eucalyptus/Menthol/Phenol/Sorbitol 1 each 04/05/17 13:52 Cepastat Lozenge - MM Q4H PRN SORE THROAT Guaifenesin 10 ml 04/05/17 13:52 Robitussin Dm - PO Q6H PRN COUGH Hydroxyzine Pamoate 25 mg 04/05/17 13:52 Vistaril - PO Q4H PRN AGITATION Ibuprofen 400 mg 04/05/17 13:52 04/11/17 21:33 Motrin - PO 400 mg Q6H PRN Administration PAIN Lidocaine 1 patch 04/09/17 13:30 04/13/17 10:00 Lidoderm Patch - TP 1 patch DAILY MICHAEL Administration Loperamide HCl 4 mg 04/05/17 13:52 Imodium - PO Q6H PRN DIARRHEA Magnesium Hydroxide 30 ml 04/05/17 13:52 04/10/17 10:08 Milk Of Magnesia - PO 30 ml DAILY PRN Administration CONSTIPATION Miscellaneous 1 each 04/09/17 22:00 04/12/17 21:31 Lidoderm Patch Removal MC 1 each DAILY@2200 MICHAEL Administration Nicotine 21 mg 04/05/17 14:00 04/13/17 10:03 Nicoderm Patch - TD Not Given DAILY MICHAEL Non-Formulary Medication 1 each 04/06/17 10:00 04/13/17 10:00 Abacavir/Dolutegravir/Lamivudi [Triumeq Tablet] PO 1 each DAILY MICHAEL Administration Multivit/Folic Acid/Iron 1 tab 04/06/17 10:00 04/13/17 10:00 Vitamins ([facility]) - PO 1 tab DAILY MICHAEL Administration Pseudoephedrine/Triprolidine 1 combo 04/05/17 13:52 Actifed - PO TID PRN NASAL CONGESTION Quetiapine Fumarate 300 mg 04/05/17 22:00 04/12/17 21:30 Seroquel - PO 300 mg HS MICHAEL Administration Thiamine HCl 100 mg 04/05/17 22:00 04/12/17 21:30 Vitamin B1 - PO 100 mg HS MICHAEL Administration Trimethoprim/Sulfamethoxazole 1 each 04/05/17 22:00 04/13/17 10:00 Bactrim Ds - PO 1 each BID MICHAEL Administration Current Side Effect: No Lab tests ordered: No Lab tests reviewed: Yes Provider note:: Was requested by the staft to discharge patient today due to the fact that her medications for HIV+ not in hospital formulary and she has no one who could bring her medication. Patient is currently on Seroquel 300 mg po hs, medication well tolerated, script e-transferred to her pharmacy. Patient was encouraged to continue maintain abstinence and take medications as indicatied. Patient seems to be stable for discharge. Total face to face time:: 25 Mental Status Exam - Mental Status Exam Alert and Oriented to: Time, Place, Person Cognitive Function: Grossly Intact Patient Appearance: Well Groomed Affect: Appropriate, Mood Congruent, Normal Range Patient Behavior: Appropriate, Cooperative Speech Pattern: Clear, Appropriate Voice Loudness: Normal Thought Process: Intact, Goal Oriented Thought Disorder: Not Present Hallucinations: Denies Suicidal Ideation: Denies Homicidal Ideation: Denies Insight/Judgement: Fair Sleep: Well Appetite: Good Muscle strength/Tone: Normal Gait/Station: Normal Psychiatric Treatment Plan - Problem List (1) Nicotine dependence Current Visit: No (2) Substance induced mood disorder Current Visit: Yes (3) Alcohol dependence Current Visit: Yes (4) Cocaine dependence Current Visit: Yes
[2017-04-13 10:43] VITALS: BP 150/80; PULSE 98
== END 2017-04-13 11:45 | disposition home or self-care (01) | DRG 772 ==
LOC: YASAS 12:50 → UNDOADMIN 12:52 → Y3W 12:52
PROVIDERS: ADMIT Psychiatry & Neurology Psychiatry; ATTEND Psychiatry & Neurology Psychiatry
PROC: HZ42ZZZ Group Counseling for Substance Abuse Treatment, Cognitive-Behavioral (ICD-10-PCS; principal; 2017-04-05)
DX: F10.20 Alcohol dependence, uncomplicated (principal); F14.20 Cocaine dependence, uncomplicated; F17.210 Nicotine dependence, cigarettes, uncomplicated; F19.24 Other psychoactive substance dependence with psychoactive substance-induced mood disorder; Z21 Asymptomatic human immunodeficiency virus [HIV] infection status; J45.909 Unspecified asthma, uncomplicated; I10 Essential (primary) hypertension; B18.2 Chronic viral hepatitis C; E78.00 Pure hypercholesterolemia, unspecified; Z87.42 Personal history of other diseases of the female genital tract